=== PATIENT | male | born 1940 | race Caucasian/White ===

== ENCOUNTER 2023-08-03 15:30 | Inpatient (IN) | payer MEDICARE, OTHER ==
[~2023-08-03] VITALS: Ht 180.3 cm; Wt 81.8 kg
[~2023-08-03 15:30] MED LIST: ERGO400C PO; FERR-121 PO; FINA5TAB11 PO; FOLI0.4T6 PO; MECO10005 PO; TERA10CA4 PO
[2023-08-03 17:37] LABS: ALANINE AMINOTRANSFERASE 34 U/L (12-78); ALBUMIN 2.7 G/DL (3.4-5.0); ALKALINE PHOSPHATASE 40 IU/L (46-116); ANION GAP 6 (8-16); ASPARTATE AMINO TRANSFERASE 19 U/L (10-37); BILIRUBIN,TOTAL 0.3 MG/DL (0.1-1.0); BLOOD UREA NITROGEN 20 MG/DL (7-18); BUN/CREATININE RATIO 16.4 (10.0-20.0); CALCIUM 8.1 MG/DL (8.5-10.1); CHLORIDE 104 MMOL/L (99-107); CREATININE 1.22 MG/DL (0.60-1.10); GLUCOSE 115 MG/DL (70-104); POTASSIUM 4.3 MMOL/L (3.5-5.1); SODIUM 135 MMOL/L (135-145); TOTAL CARBON DIOXIDE 25.1 MMOL/L (24-32); TOTAL PROTEIN 5.3 G/DL (6.4-8.2); eCRCL 48 ML/MIN; eGFR 57 ML/MIN
[2023-08-03 17:43] LABS: HEMATOCRIT 18.5 % (42.0-52.0); HEMOGLOBIN 5.9 g/dl (14.0-17.9); RED BLOOD COUNT 2.01 X10'6 (4.70-6.10); WHITE BLOOD COUNT 7.2 X10'3 (4.5-11.0)
[2023-08-03 17:45] LABS: BASOPHILS % (AUTO) 1.2 % (0-1); EOSINOPHILS % (AUTO) 0.8 % (0-6); LYMPHOCYTES % (AUTO) 13.8 % (21-51); MEAN CORPUSCULAR HEMOGLOBIN 29.1 PG (27.0-31.0); MEAN CORPUSCULAR HGB CONC 31.7 g/dL (33.0-36.5); MEAN CORPUSCULAR VOLUME 91.8 FL (78-98); MEAN PLATELET VOLUME 8.3 FL (7.4-10.4); MONOCYTES % (AUTO) 8.9 % (2-12); NEUTROPHILS # (AUTO) 5.4 X10'3 (1.8-7.7); NEUTROPHILS % (AUTO) 75.3 % (42-75); PLATELET COUNT 233 X10'3 (140-440); RED CELL DISTRIBUTION WIDTH 15.8 % (11.5-14.5)
[2023-08-03 17:46] LABS: BASOPHILS # (AUTO) 0.1 X10'3 (0-0.2); EOSINOPHILS # (AUTO) 0.1 X10'3 (0-0.9); MONOCYTES # (AUTO) 0.6 X10'3 (0-0.9)
[2023-08-03] MEDS ORDERED: LidoCAINE 2% Topical Jelly 11mL syringe TOP ONE (18:25)
[2023-08-03 19:53] LABS: OCCULT BLOOD STOOL NEGATIVE (Neg)
[2023-08-03 20:08] LABS: BASOPHILS # (AUTO) 0.1 X10'3 (0-0.2); EOSINOPHILS # (AUTO) 0.1 X10'3 (0-0.9); LYMPHOCYTES % (AUTO) 14.1 % (21-51); MEAN CORPUSCULAR HEMOGLOBIN 28.7 PG (27.0-31.0); MEAN CORPUSCULAR HGB CONC 31.3 g/dL (33.0-36.5); MEAN CORPUSCULAR VOLUME 91.5 FL (78-98); MONOCYTES # (AUTO) 0.6 X10'3 (0-0.9); MONOCYTES % (AUTO) 8.6 % (2-12); NEUTROPHILS # (AUTO) 5.3 X10'3 (1.8-7.7); NEUTROPHILS % (AUTO) 75.3 % (42-75); PLATELET COUNT 240 X10'3 (140-440); RED BLOOD COUNT 1.99 X10'6 (4.70-6.10); RED CELL DISTRIBUTION WIDTH 15.8 % (11.5-14.5)
[2023-08-03 20:14] LABS: HEMATOCRIT 18.2 % (42.0-52.0); HEMOGLOBIN 5.7 g/dl (14.0-17.9)
[2023-08-03 20:19] LABS: APTT 24 SECONDS (22-32); INR 1.1 INR; PROTHROMBIN TIME 11.5 SECONDS (9.0-12.0)
[2023-08-03 20:52] LABS: CLARITY,URINE BLOODY (Clear); COLOR,URINE RED (Yellow); UA COLLECTION TYPE FOLEY CATH
[2023-08-03 21:11] LABS: BACTERIA,URINE 2+ /HPF (Neg); RBC,URINE TNTC /HPF (0-2); SQUAMOUS EPITHELIAL CELL,UR NONE SEEN /LPF (FEW)
[2023-08-03 21:22] VITALS: BP 123/46; PULSE 66; RESP 18; TEMP 98.1
[2023-08-03] MEDS ORDERED: potassium Cl 20 mEq SR tablet PO PRN ×2 (21:25)
[2023-08-03] MEDS ORDERED: magnesium 2GM in 50ml NS 50 ML IV PRN (21:25)
[2023-08-03] MEDS ORDERED: acetaminophen 325mg tablet PO PRN (21:25)
[2023-08-03] MEDS ORDERED: magnesium hydroxide 30ml (MOM) UD suspension PO PRN (21:25)
[2023-08-03] MEDS ORDERED: mag hydrox/Alum hydrox/simeth 30ml oral suspension PO PRN (21:25)
[2023-08-03] MEDS ORDERED: magnesium 4gm in 100ml NS 100 ML IV PRN (21:25)
[2023-08-03] MEDS ORDERED: magnesium Cl slow-release 64mg tablet PO PRN (21:25)
[2023-08-03] MEDS ORDERED: ondansetron/PF 4mg/2ml inj IV PRN (21:25)
[2023-08-03] MEDS ORDERED: potassium Cl 40MEQ/1/2NS 520ml 520 ML IV PRN (21:25)
[2023-08-03 21:38] VITALS: BP 126/51; PULSE 66; RESP 16; TEMP 98.5
[2023-08-03 22:40] VITALS: BP 126/60; PULSE 76; RESP 16; TEMP 98.3
[2023-08-03 22:52] VITALS: BP 119/53; PULSE 69; RESP 16; TEMP 98.3
[2023-08-03 23:07] VITALS: BP 128/55; PULSE 63; RESP 16; TEMP 98.3
[2023-08-03] MEDS: normal saline 1000ml 1,000 ML IV SCH (23:37)
[2023-08-04] VITALS: BP 121/57; PULSE 65; RESP 16; TEMP 98.2
[2023-08-04] MEDS: K and/or MAG REPLACEMENT MC SCH ×2 (07:23→20:00)
[2023-08-04] MEDS: docusate sod 100mg capsule PO SCH ×2 (08:00→20:00)
[2023-08-04 08:18] LABS: BASOPHILS # (AUTO) 0.1 X10'3 (0-0.2); BASOPHILS % (AUTO) 1.4 % (0-1); EOSINOPHILS # (AUTO) 0.1 X10'3 (0-0.9); EOSINOPHILS % (AUTO) 1.9 % (0-6); HEMATOCRIT 26.4 % (42.0-52.0); HEMOGLOBIN 8.5 g/dl (14.0-17.9); LYMPHOCYTES # (AUTO) 0.9 X10'3 (1.1-4.8); LYMPHOCYTES % (AUTO) 14.6 % (21-51); MEAN CORPUSCULAR HGB CONC 32.3 g/dL (33.0-36.5); MEAN CORPUSCULAR VOLUME 93.1 FL (78-98); MEAN PLATELET VOLUME 8.1 FL (7.4-10.4); MONOCYTES # (AUTO) 0.6 X10'3 (0-0.9); MONOCYTES % (AUTO) 10.1 % (2-12); NEUTROPHILS # (AUTO) 4.7 X10'3 (1.8-7.7); PLATELET COUNT 223 X10'3 (140-440); RED BLOOD COUNT 2.84 X10'6 (4.70-6.10); RED CELL DISTRIBUTION WIDTH 15.5 % (11.5-14.5); WHITE BLOOD COUNT 6.5 X10'3 (4.5-11.0)
[2023-08-04 08:19] LABS: HEMATOCRIT 26.1 % (42.0-52.0); HEMOGLOBIN 8.5 g/dl (14.0-17.9); MEAN CORPUSCULAR HEMOGLOBIN 29.6 PG (27.0-31.0); MEAN CORPUSCULAR HGB CONC 32.5 g/dL (33.0-36.5); MEAN CORPUSCULAR VOLUME 91.2 FL (78-98); PLATELET COUNT 203 X10'3 (140-440); RED BLOOD COUNT 2.86 X10'6 (4.70-6.10); RED CELL DISTRIBUTION WIDTH 15.7 % (11.5-14.5); WHITE BLOOD COUNT 6.3 X10'3 (4.5-11.0)
[2023-08-04 10:21] LABS: ALANINE AMINOTRANSFERASE 30 U/L (12-78); ALBUMIN 2.5 G/DL (3.4-5.0); ALKALINE PHOSPHATASE 33 IU/L (46-116); ANION GAP 7 (8-16); ASPARTATE AMINO TRANSFERASE 18 U/L (10-37); BILIRUBIN,TOTAL 0.6 MG/DL (0.1-1.0); BLOOD UREA NITROGEN 20 MG/DL (7-18); BUN/CREATININE RATIO 20.2 (10.0-20.0); CALCIUM 8.1 MG/DL (8.5-10.1); CHLORIDE 108 MMOL/L (99-107); CREATININE 0.99 MG/DL (0.60-1.10); GLUCOSE 108 MG/DL (70-104); MAGNESIUM 2.5 MG/DL (1.5-2.4); POTASSIUM 4.3 MMOL/L (3.5-5.1); SODIUM 138 MMOL/L (135-145); TOTAL CARBON DIOXIDE 23.5 MMOL/L (24-32); eCRCL 59 ML/MIN; eGFR 72 ML/MIN
[2023-08-04] MEDS: vancomycin/NS 1 GM ADD-VANTAGE 250 ML IV SCH (10:24)
[2023-08-04] MEDS: tamsulosin 0.4mg capsule PO SCH (12:19)
[2023-08-04 20:15] VITALS: BP 119/47; PULSE 66; RESP 17; TEMP 98; O2SAT 98
[2023-08-04 21:00] VITALS: RESP 17; O2SAT 98
[2023-08-05 02:00] VITALS: BP 114/42; PULSE 64; RESP 16; TEMP 97; O2SAT 99
[2023-08-05] MEDS: docusate sod 100mg capsule PO SCH ×2 (07:30→20:00)
[2023-08-05] MEDS: tamsulosin 0.4mg capsule PO SCH (07:31)
[2023-08-05 08:00] VITALS: RESP 14; O2SAT 97
[2023-08-05 08:45] LABS: BASOPHILS # (AUTO) 0.1 X10'3 (0-0.2); BASOPHILS % (AUTO) 0.8 % (0-1); EOSINOPHILS # (AUTO) 0.1 X10'3 (0-0.9); EOSINOPHILS % (AUTO) 1.6 % (0-6); HEMATOCRIT 26.8 % (42.0-52.0); HEMOGLOBIN 8.5 g/dl (14.0-17.9); LYMPHOCYTES # (AUTO) 0.8 X10'3 (1.1-4.8); LYMPHOCYTES % (AUTO) 10.5 % (21-51); MEAN CORPUSCULAR HEMOGLOBIN 29.1 PG (27.0-31.0); MEAN CORPUSCULAR HGB CONC 31.7 g/dL (33.0-36.5); MEAN CORPUSCULAR VOLUME 91.7 FL (78-98); MEAN PLATELET VOLUME 8.2 FL (7.4-10.4); MONOCYTES # (AUTO) 0.6 X10'3 (0-0.9); MONOCYTES % (AUTO) 7.4 % (2-12); NEUTROPHILS # (AUTO) 5.9 X10'3 (1.8-7.7); NEUTROPHILS % (AUTO) 79.7 % (42-75); PLATELET COUNT 253 X10'3 (140-440); RED BLOOD COUNT 2.92 X10'6 (4.70-6.10); RED CELL DISTRIBUTION WIDTH 15.7 % (11.5-14.5); WHITE BLOOD COUNT 7.5 X10'3 (4.5-11.0)
[2023-08-05 09:12] LABS: ALANINE AMINOTRANSFERASE 28 U/L (12-78); ALBUMIN 2.5 G/DL (3.4-5.0); ALKALINE PHOSPHATASE 36 IU/L (46-116); ANION GAP 5 (8-16); ASPARTATE AMINO TRANSFERASE 16 U/L (10-37); BILIRUBIN,TOTAL 0.6 MG/DL (0.1-1.0); BLOOD UREA NITROGEN 16 MG/DL (7-18); BUN/CREATININE RATIO 17.6 (10.0-20.0); CALCIUM 7.8 MG/DL (8.5-10.1); CHLORIDE 103 MMOL/L (99-107); CREATININE 0.91 MG/DL (0.60-1.10); GLUCOSE 103 MG/DL (70-104); MAGNESIUM 2.2 MG/DL (1.5-2.4); SODIUM 135 MMOL/L (135-145); TOTAL CARBON DIOXIDE 27.3 MMOL/L (24-32); eCRCL 64 ML/MIN; eGFR 79 ML/MIN
[2023-08-05 10:00] VITALS: BP 115/47; PULSE 68; RESP 14; TEMP 98.2; O2SAT 97
[2023-08-05] MEDS: vancomycin/NS 1 GM ADD-VANTAGE 250 ML IV SCH ×2 (11:16→23:12)
[2023-08-05 18:00] VITALS: BP 124/54; PULSE 72; RESP 16; TEMP 98.1; O2SAT 99
[2023-08-05] MEDS: K and/or MAG REPLACEMENT MC SCH (19:32)
[2023-08-05 20:00] VITALS: RESP 16; O2SAT 99
[2023-08-05] MEDS: normal saline 1000ml 1,000 ML IV SCH (21:25)
[2023-08-05 22:00] VITALS: BP 100/31; PULSE 63; RESP 16; TEMP 98.5; O2SAT 95
[2023-08-06 05:42] LABS: BASOPHILS # (AUTO) 0.1 X10'3 (0-0.2); BASOPHILS % (AUTO) 0.8 % (0-1); EOSINOPHILS # (AUTO) 0.2 X10'3 (0-0.9); EOSINOPHILS % (AUTO) 2.7 % (0-6); HEMATOCRIT 25.1 % (42.0-52.0); LYMPHOCYTES # (AUTO) 1.1 X10'3 (1.1-4.8); LYMPHOCYTES % (AUTO) 13.8 % (21-51); MEAN CORPUSCULAR HEMOGLOBIN 28.9 PG (27.0-31.0); MEAN CORPUSCULAR HGB CONC 31.9 g/dL (33.0-36.5); MEAN CORPUSCULAR VOLUME 90.5 FL (78-98); MEAN PLATELET VOLUME 7.8 FL (7.4-10.4); MONOCYTES # (AUTO) 0.7 X10'3 (0-0.9); MONOCYTES % (AUTO) 9.1 % (2-12); NEUTROPHILS # (AUTO) 5.6 X10'3 (1.8-7.7); NEUTROPHILS % (AUTO) 73.6 % (42-75); PLATELET COUNT 254 X10'3 (140-440); RED BLOOD COUNT 2.77 X10'6 (4.70-6.10); RED CELL DISTRIBUTION WIDTH 15.5 % (11.5-14.5); WHITE BLOOD COUNT 7.7 X10'3 (4.5-11.0)
[2023-08-06 06:00] VITALS: BP 108/97; PULSE 61; RESP 16; TEMP 97.4; O2SAT 97
[2023-08-06 06:27] LABS: ALANINE AMINOTRANSFERASE 22 U/L (12-78); ALBUMIN 2.4 G/DL (3.4-5.0); ALKALINE PHOSPHATASE 34 IU/L (46-116); ANION GAP 4 (8-16); ASPARTATE AMINO TRANSFERASE 17 U/L (10-37); BILIRUBIN,TOTAL 0.5 MG/DL (0.1-1.0); BLOOD UREA NITROGEN 15 MG/DL (7-18); CALCIUM 8.1 MG/DL (8.5-10.1); CHLORIDE 106 MMOL/L (99-107); CREATININE 0.94 MG/DL (0.60-1.10); GLUCOSE 107 MG/DL (70-104); MAGNESIUM 2.1 MG/DL (1.5-2.4); POTASSIUM 4.3 MMOL/L (3.5-5.1); SODIUM 138 MMOL/L (135-145); TOTAL CARBON DIOXIDE 27.8 MMOL/L (24-32); TOTAL PROTEIN 4.8 G/DL (6.4-8.2); eCRCL 62 ML/MIN; eGFR 76 ML/MIN
[2023-08-06 08:00] VITALS: RESP 14; O2SAT 93
[2023-08-06] MEDS: tamsulosin 0.4mg capsule PO SCH (08:30)
[2023-08-06] MEDS: docusate sod 100mg capsule PO SCH ×2 (08:30→19:59)
[2023-08-06 10:00] VITALS: BP 125/57; PULSE 61; RESP 14; TEMP 97.8; O2SAT 93
[2023-08-06] MEDS: vancomycin/NS 1 GM ADD-VANTAGE 250 ML IV SCH ×2 (11:17→23:53)
[2023-08-06 18:00] VITALS: BP 121/49; PULSE 97; RESP 16; TEMP 97.9; O2SAT 99
[2023-08-06] MEDS ORDERED: HYDROcodone/acetaminophen 5mg/325mg tablet PO PRN (19:25)
[2023-08-06] MEDS: K and/or MAG REPLACEMENT MC SCH (19:28)
[2023-08-06 20:11] VITALS: RESP 16; O2SAT 99
[2023-08-06 22:00] VITALS: BP 97/49; PULSE 64; RESP 16; TEMP 98.6; O2SAT 98
[2023-08-06] MEDS ORDERED: VANCOMYCIN LEVEL IV ONE (22:30)
[2023-08-07 06:52] LABS: BASOPHILS # (AUTO) 0.1 X10'3 (0-0.2); EOSINOPHILS # (AUTO) 0.1 X10'3 (0-0.9); EOSINOPHILS % (AUTO) 1.1 % (0-6); HEMATOCRIT 23.8 % (42.0-52.0); HEMOGLOBIN 7.5 g/dl (14.0-17.9); LYMPHOCYTES # (AUTO) 0.8 X10'3 (1.1-4.8); MEAN CORPUSCULAR HEMOGLOBIN 28.5 PG (27.0-31.0); MEAN CORPUSCULAR HGB CONC 31.4 g/dL (33.0-36.5); MEAN CORPUSCULAR VOLUME 90.8 FL (78-98); MEAN PLATELET VOLUME 8.3 FL (7.4-10.4); MONOCYTES # (AUTO) 0.8 X10'3 (0-0.9); MONOCYTES % (AUTO) 9.1 % (2-12); NEUTROPHILS # (AUTO) 7.2 X10'3 (1.8-7.7); NEUTROPHILS % (AUTO) 79.8 % (42-75); PLATELET COUNT 258 X10'3 (140-440); RED BLOOD COUNT 2.62 X10'6 (4.70-6.10); RED CELL DISTRIBUTION WIDTH 15.5 % (11.5-14.5)
[2023-08-07 07:15] LABS: ALANINE AMINOTRANSFERASE 23 U/L (12-78); ALBUMIN 2.3 G/DL (3.4-5.0); ALKALINE PHOSPHATASE 39 IU/L (46-116); ANION GAP 6 (8-16); ASPARTATE AMINO TRANSFERASE 15 U/L (10-37); BILIRUBIN,TOTAL 0.4 MG/DL (0.1-1.0); BLOOD UREA NITROGEN 17 MG/DL (7-18); BUN/CREATININE RATIO 22.1 (10.0-20.0); CALCIUM 8.1 MG/DL (8.5-10.1); CHLORIDE 106 MMOL/L (99-107); CREATININE 0.77 MG/DL (0.60-1.10); GLUCOSE 110 MG/DL (70-104); MAGNESIUM 2.1 MG/DL (1.5-2.4); POTASSIUM 4.4 MMOL/L (3.5-5.1); SODIUM 138 MMOL/L (135-145); TOTAL CARBON DIOXIDE 26.5 MMOL/L (24-32); TOTAL PROTEIN 4.7 G/DL (6.4-8.2); eCRCL 76 ML/MIN; eGFR > 90 ML/MIN
[2023-08-07] MEDS: K and/or MAG REPLACEMENT MC SCH ×2 (08:00→20:00)
[2023-08-07] MEDS: docusate sod 100mg capsule PO SCH ×2 (08:28→19:45)
[2023-08-07] MEDS: tamsulosin 0.4mg capsule PO SCH (08:28)
[2023-08-07 08:43] VITALS: RESP 16; O2SAT 97
[2023-08-07] MEDS ORDERED: VANCOMYCIN LEVEL IV ONE (09:30)
[2023-08-07 10:00] VITALS: BP_SYST 112; BP_SYST 118; BP_DIAS 49; BP_DIAS 56; PULSE 72; PULSE 75; RESP 16; RESP 18; TEMP 97.6; TEMP 97.7; O2SAT 98; O2SAT 99
[2023-08-07] MEDS: VANCOmycin 1250MG/NS 250ml Bag 250 ML IV SCH (11:08)
[2023-08-07 18:00] VITALS: BP 114/42; PULSE 80; RESP 16; TEMP 98.4; O2SAT 99
[2023-08-07 22:00] VITALS: BP 116/39; PULSE 87; RESP 18; TEMP 97.9; O2SAT 96
[2023-08-08] VITALS (8 sets, daily range): BP systolic 88–120; BP diastolic 35–55; PULSE 68–83; RESP 14–20; TEMP 97.5–98.3; O2SAT 94–98
[2023-08-08] MEDS: VANCOmycin 1250MG/NS 250ml Bag 250 ML IV SCH ×3 (01:28→23:25)
[2023-08-08] MEDS: normal saline 1000ml 1,000 ML IV SCH (01:29)
[2023-08-08 06:03] LABS: BASOPHILS # (AUTO) 0.1 X10'3 (0-0.2); EOSINOPHILS # (AUTO) 0.2 X10'3 (0-0.9); EOSINOPHILS % (AUTO) 2.4 % (0-6); HEMATOCRIT 22.3 % (42.0-52.0); LYMPHOCYTES # (AUTO) 0.9 X10'3 (1.1-4.8); LYMPHOCYTES % (AUTO) 13.2 % (21-51); MEAN CORPUSCULAR HEMOGLOBIN 28.4 PG (27.0-31.0); MEAN CORPUSCULAR HGB CONC 31.6 g/dL (33.0-36.5); MEAN CORPUSCULAR VOLUME 89.7 FL (78-98); MONOCYTES # (AUTO) 0.8 X10'3 (0-0.9); MONOCYTES % (AUTO) 10.8 % (2-12); NEUTROPHILS # (AUTO) 5.2 X10'3 (1.8-7.7); NEUTROPHILS % (AUTO) 72.6 % (42-75); PLATELET COUNT 272 X10'3 (140-440); RED BLOOD COUNT 2.48 X10'6 (4.70-6.10); RED CELL DISTRIBUTION WIDTH 15.7 % (11.5-14.5); WHITE BLOOD COUNT 7.1 X10'3 (4.5-11.0)
[2023-08-08 06:24] LABS: ALANINE AMINOTRANSFERASE 18 U/L (12-78); ALBUMIN 2.2 G/DL (3.4-5.0); ALBUMIN/GLOBULIN RATIO 0.9 (1.1-1.5); ALKALINE PHOSPHATASE 35 IU/L (46-116); ANION GAP 5 (8-16); ASPARTATE AMINO TRANSFERASE 17 U/L (10-37); BILIRUBIN,TOTAL 0.4 MG/DL (0.1-1.0); BLOOD UREA NITROGEN 18 MG/DL (7-18); BUN/CREATININE RATIO 20.7 (10.0-20.0); CALCIUM 8.1 MG/DL (8.5-10.1); CHLORIDE 106 MMOL/L (99-107); CREATININE 0.87 MG/DL (0.60-1.10); GLUCOSE 106 MG/DL (70-104); POTASSIUM 4.4 MMOL/L (3.5-5.1); SODIUM 138 MMOL/L (135-145); TOTAL CARBON DIOXIDE 27.4 MMOL/L (24-32); TOTAL PROTEIN 4.7 G/DL (6.4-8.2); eCRCL 67 ML/MIN; eGFR 84 ML/MIN
[2023-08-08] MEDS: K and/or MAG REPLACEMENT MC SCH ×2 (08:00→20:00)
[2023-08-08] MEDS: docusate sod 100mg capsule PO SCH ×2 (09:01→21:35)
[2023-08-08] MEDS: tamsulosin 0.4mg capsule PO SCH (09:01)
[2023-08-08 18:54] LABS: HEMATOCRIT 22.5 % (42.0-52.0); HEMOGLOBIN 7.2 g/dl (14.0-17.9); MEAN CORPUSCULAR HEMOGLOBIN 28.6 PG (27.0-31.0); MEAN CORPUSCULAR HGB CONC 31.9 g/dL (33.0-36.5); MEAN CORPUSCULAR VOLUME 89.7 FL (78-98); PLATELET COUNT 284 X10'3 (140-440); RED CELL DISTRIBUTION WIDTH 15.9 % (11.5-14.5); WHITE BLOOD COUNT 7.6 X10'3 (4.5-11.0)
[2023-08-08] MEDS ORDERED: VANCOMYCIN LEVEL IV ONE (22:30)
[2023-08-09] VITALS (23 sets, daily range): BP systolic 96–125; BP diastolic 38–67; PULSE 70–100; RESP 12–20; TEMP 97.6–98.8; O2SAT 94–100
[2023-08-09] MEDS: K and/or MAG REPLACEMENT MC SCH ×2 (08:00→20:00)
[2023-08-09] MEDS ORDERED: VANCOMYCIN 1,500MG in normal saline IV soln 300 ML IV SCH (11:00)
[2023-08-09] MEDS: tamsulosin 0.4mg capsule PO SCH (11:09)
[2023-08-09] MEDS: docusate sod 100mg capsule PO SCH ×2 (11:09→20:00)
[2023-08-09] MEDS ORDERED: sevoflurane 250ml liquid IH ONE (12:22)
[2023-08-09] MEDS ORDERED: fentaNYL/PF 50MCG/1 ML 2ML syringe ONE (12:29)
[2023-08-09] MEDS ORDERED: midazolam 1 mg/ML 2ml injection ONE (12:29)
[2023-08-09] MEDS ORDERED: propofol inj 20 ML IV ONE (12:29)
[2023-08-09] MEDS ORDERED: ringers solution, lacted 1,000 ML IV SCH (13:30)
[2023-08-09] MEDS ORDERED: proCHLORperazine 10 MG/2 ml inj IV PRN (13:30)
[2023-08-09] MEDS ORDERED: meperidine/PF 25mg/ml syringe IV PRN ×3 (13:30)
[2023-08-09] MEDS ORDERED: ondansetron/PF 4mg/2ml inj IV PRN (13:30)
[2023-08-09] MEDS ORDERED: morphine 2 MG/ML inj. syringe IV PRN (13:30)
[2023-08-09] MEDS ORDERED: morphine 4 MG/ML inj SYRINge IV PRN (13:30)
[2023-08-09] MEDS: normal saline 1000ml 1,000 ML IV SCH (19:12)
[2023-08-09 19:51] LABS: MEAN CORPUSCULAR HEMOGLOBIN 28.5 PG (27.0-31.0); MEAN CORPUSCULAR HGB CONC 32.2 g/dL (33.0-36.5); MEAN CORPUSCULAR VOLUME 88.4 FL (78-98); MEAN PLATELET VOLUME 7.8 FL (7.4-10.4); PLATELET COUNT 287 X10'3 (140-440); RED BLOOD COUNT 2.43 X10'6 (4.70-6.10); RED CELL DISTRIBUTION WIDTH 15.8 % (11.5-14.5); WHITE BLOOD COUNT 9.2 X10'3 (4.5-11.0)
[2023-08-09 19:56] LABS: HEMATOCRIT 21.5 % (42.0-52.0); HEMOGLOBIN 6.9 g/dl (14.0-17.9)
[2023-08-10] VITALS (12 sets, daily range): BP systolic 100–120; BP diastolic 39–79; PULSE 71–92; RESP 14–16; TEMP 97.4–98.9; O2SAT 95–99
[2023-08-10] MEDS: docusate sod 100mg capsule PO SCH ×2 (11:12→20:45)
[2023-08-10] MEDS: tamsulosin 0.4mg capsule PO SCH (11:12)
[2023-08-10 13:34] LABS: HEMATOCRIT 24.2 % (42.0-52.0); HEMOGLOBIN 7.8 g/dl (14.0-17.9); MEAN CORPUSCULAR HEMOGLOBIN 28.5 PG (27.0-31.0); MEAN CORPUSCULAR HGB CONC 32.1 g/dL (33.0-36.5); MEAN CORPUSCULAR VOLUME 88.8 FL (78-98); MEAN PLATELET VOLUME 7.8 FL (7.4-10.4); PLATELET COUNT 289 X10'3 (140-440); RED BLOOD COUNT 2.73 X10'6 (4.70-6.10); WHITE BLOOD COUNT 6.4 X10'3 (4.5-11.0)
[2023-08-10] MEDS ORDERED: tamsulosin capsule PO (15:08)
[2023-08-10] MEDS: K and/or MAG REPLACEMENT MC SCH ×2 (20:00→20:45)
[2023-08-10] MEDS ORDERED: VANCOMYCIN LEVEL IV ONE (22:30)
[2023-08-11 06:00] VITALS: BP 120/45; PULSE 78; RESP 16; TEMP 98; O2SAT 96
[2023-08-11 06:43] LABS: BASOPHILS # (AUTO) 0.1 X10'3 (0-0.2); EOSINOPHILS # (AUTO) 0.2 X10'3 (0-0.9); HEMOGLOBIN 7.6 g/dl (14.0-17.9); MEAN CORPUSCULAR HEMOGLOBIN 28.6 PG (27.0-31.0); MEAN PLATELET VOLUME 7.8 FL (7.4-10.4); WHITE BLOOD COUNT 6.3 X10'3 (4.5-11.0)
[2023-08-11 06:45] LABS: BASOPHILS % (AUTO) 1.6 % (0-1); EOSINOPHILS % (AUTO) 2.8 % (0-6); HEMATOCRIT 23.3 % (42.0-52.0); LYMPHOCYTES # (AUTO) 0.9 X10'3 (1.1-4.8); LYMPHOCYTES % (AUTO) 13.5 % (21-51); MEAN CORPUSCULAR HGB CONC 32.5 g/dL (33.0-36.5); MEAN CORPUSCULAR VOLUME 87.9 FL (78-98); MONOCYTES # (AUTO) 0.9 X10'3 (0-0.9); MONOCYTES % (AUTO) 13.9 % (2-12); NEUTROPHILS # (AUTO) 4.3 X10'3 (1.8-7.7); NEUTROPHILS % (AUTO) 68.2 % (42-75); PLATELET COUNT 296 X10'3 (140-440); RED BLOOD COUNT 2.65 X10'6 (4.70-6.10)
[2023-08-11 06:53] LABS: ALBUMIN 2.1 G/DL (3.4-5.0); ANION GAP 0 (8-16); BLOOD UREA NITROGEN 26 MG/DL (7-18); BUN/CREATININE RATIO 27.1 (10.0-20.0); CALCIUM 8.3 MG/DL (8.5-10.1); CHLORIDE 109 MMOL/L (99-107); CREATININE 0.96 MG/DL (0.60-1.10); GLUCOSE 110 MG/DL (70-104); POTASSIUM 4.4 MMOL/L (3.5-5.1); SODIUM 138 MMOL/L (135-145); eCRCL 61 ML/MIN; eGFR 75 ML/MIN
[2023-08-11] MEDS: tamsulosin 0.4mg capsule PO SCH (07:25)
[2023-08-11] MEDS: docusate sod 100mg capsule PO SCH (07:25)
[2023-08-11 08:00] VITALS: RESP 16; O2SAT 96
[2023-08-11] MEDS: K and/or MAG REPLACEMENT MC SCH (08:00)
== END 2023-08-11 13:45 | disposition home or self-care (01) | DRG 662 ==
LOC: ER 15:31 → ED HOLD 21:27 → ORTHO 4S 08-04 20:10
PROVIDERS: ADMIT Internal Medicine; ATTEND Internal Medicine
PROC: 30233N1 Transfusion of Nonautologous Red Blood Cells into Peripheral Vein, Percutaneous Approach (ICD-10-PCS; 2023-08-03)
PROC: 0T5B8ZZ Destruction of Bladder, Via Natural or Artificial Opening Endoscopic (ICD-10-PCS; 2023-08-09)
PROC: 0TCB8ZZ Extirpation of Matter from Bladder, Via Natural or Artificial Opening Endoscopic (ICD-10-PCS; 2023-08-09)
PROC: 3E1K78Z Irrigation of Genitourinary Tract using Irrigating Substance, Via Natural or Artificial Opening (ICD-10-PCS; 2023-08-09)
PROC: 0W3R8ZZ Control Bleeding in Genitourinary Tract, Via Natural or Artificial Opening Endoscopic (ICD-10-PCS; principal; 2023-08-09 12:22)
DX: N30.41 Irradiation cystitis with hematuria (principal); E43 Unspecified severe protein-calorie malnutrition; D62 Acute posthemorrhagic anemia; N32.9 Bladder disorder, unspecified; N41.1 Chronic prostatitis; N40.1 Benign prostatic hyperplasia with lower urinary tract symptoms; Z85.46 Personal history of malignant neoplasm of prostate; Z86.16 Personal history of COVID-19; Z88.0 Allergy status to penicillin; Z79.899 Other long term (current) drug therapy; Z92.3 Personal history of irradiation; Z68.25 Body mass index [BMI] 25.0-25.9, adult
CPT/HCPCS: 36415; 36430; 71045; 74176; 80048; 80053; 80202; 81001; 82272; 82948; 83735; 85025; 85027; 85610; 85730; 86885; 86900; 86901; 86920; 87081; 87088; 93005; 93970; 97161; 97530; 99285; A4346; A4355; A4618; A5200; A6258; G0378; J2250; J2704; J3010; J3370; J7030; J7040; P9016

== ENCOUNTER 2024-07-06 12:05 | Emergency (ER) | payer MEDICARE, OTHER ==
[~2024-07-06] VITALS: Ht 180.3 cm; Wt 79.0 kg
[~2024-07-06 12:05] MED LIST changes: -TERA10CA4 PO; +tamsulosin capsule PO
[2024-07-06 12:28] VITALS: TEMP 97.6
[2024-07-06 15:05] LABS: CLARITY,URINE BLOODY (Clear); COLOR,URINE RED (Yellow); UA COLLECTION TYPE NON-SPECIFIED
[2024-07-06 15:09] LABS: BACTERIA,URINE FEW /HPF (Neg); MUCUS STRANDS NONE SEEN /LPF (Neg); RBC,URINE TNTC /HPF (0-2); SQUAMOUS EPITHELIAL CELL,UR NONE SEEN /LPF (FEW); WBC,URINE 0-4 /HPF (0-4)
[2024-07-06 15:14] LABS: BASOPHILS % (AUTO) 0.4 % (0-1); EOSINOPHILS % (AUTO) 0.3 % (0-6); HEMATOCRIT 39.7 % (42.0-52.0); HEMOGLOBIN 13.6 g/dl (14.0-17.9); LYMPHOCYTES # (AUTO) 0.6 X10'3 (1.1-4.8); LYMPHOCYTES % (AUTO) 7.5 % (21-51); MEAN CORPUSCULAR HEMOGLOBIN 34.4 PG (27.0-31.0); MEAN CORPUSCULAR HGB CONC 34.3 g/dL (33.0-36.5); MEAN CORPUSCULAR VOLUME 100.4 FL (78-98); MEAN PLATELET VOLUME 8.3 FL (7.4-10.4); MONOCYTES # (AUTO) 0.5 X10'3 (0-0.9); MONOCYTES % (AUTO) 6.8 % (2-12); NEUTROPHILS # (AUTO) 6.3 X10'3 (1.8-7.7); PLATELET COUNT 194 X10'3 (140-440); RED BLOOD COUNT 3.95 X10'6 (4.70-6.10); RED CELL DISTRIBUTION WIDTH 13.2 % (11.5-14.5); WHITE BLOOD COUNT 7.4 X10'3 (4.5-11.0)
[2024-07-06 15:19] LABS: ALBUMIN 3.3 G/DL (3.4-5.0); ANION GAP 8 (8-16); BLOOD UREA NITROGEN 21 MG/DL (7-18); BUN/CREATININE RATIO 19.3 (10.0-20.0); CALCIUM 8.7 MG/DL (8.5-10.1); CHLORIDE 102 MMOL/L (99-107); CREATININE 1.09 MG/DL (0.60-1.10); GLUCOSE 127 MG/DL (70-104); POTASSIUM 4.4 MMOL/L (3.5-5.1); SODIUM 135 MMOL/L (135-145); TOTAL CARBON DIOXIDE 24.7 MMOL/L (24-32); eCRCL 53 ML/MIN; eGFR 64 ML/MIN
[2024-07-06 17:05] VITALS: BP 131/53; PULSE 60; RESP 16; O2SAT 100
== END 2024-07-06 19:08 | disposition home or self-care (01) ==
LOC: ER 12:06
DX: N40.1 Benign prostatic hyperplasia with lower urinary tract symptoms (principal); R33.8 Other retention of urine; R31.9 Hematuria, unspecified; Z88.0 Allergy status to penicillin; Z79.899 Other long term (current) drug therapy
CPT/HCPCS: 36415; 51700; 80048; 81001; 85025; 99284; A4314; A4340; A4346; A4355

== ENCOUNTER 2025-02-04 14:57 | Inpatient (IN) | payer MEDICARE, OTHER ==
[~2025-02-04] VITALS: Ht 177.8 cm; Wt 79.5 kg
--- NOTE | 2025-02-04 15:25 | Physician Documentation ---
History of Present Illness ~ Chief Complaint: Mechanical Fall Stated Complaint: FALL Time Seen by MD: 18:02 Primary Medical Doctor: Martha Hernandez [employer] HPI This is an 84-year-old male who presents with a ground level fall after a possible syncopal episode while bending over to pick something up off the ground. History as above. He reports that he has at the base of his bed fixing some clothes when he tripped over a plastic box to his right landing on his pillow. He denies head strike. He denies any abdominal pain or cough cold congestion symptoms. He is unaware of his fever. Denies dysuria. Only concern right now of my patient is he would like a drink of water. Tetanus within 5 Years?: Yes Medication Reconciliation Allergies: Coded Allergies: Penicillins (Verified Allergy, Unknown, 02/04/25) Uncoded Allergies: PENICILLIN (Adverse Reaction, Unknown, UNKNOWN, 07/26/23) WHEN TREATING THEIR RA, TOLD THEM TO AVOID IT. Scheduled Ergocalciferol (Vitamin D), 1 CAP PO DAILY, (Reported) Ferrous Sulfate (Iron), 1 TAB PO DAILY, (Reported) Finasteride (Finasteride), 1 TAB PO DAILY, (Reported) Folic Acid* (Folic Acid*), 1 TAB PO DAILY, (Reported) Mecobalamin (B12 Active), 1 TAB PO DAILY, (Reported) [tamsulosin capsule], 0.4 MG PO DAILY Past Medical History Past Medical History: *RENAL/*, BPH, *MUSCULOSKELETAL*, *CANCER* Past Social History: As in HPI Review of Systems ROS As stated above in the HPI, otherwise all systems are reviewed and negative. Physical Exam Vital Signs: Temperature: 102.5, Source: Oral, Heart Rate: 97, Respiratory Rate: 22, BP: 104/44, Pulse Oximetry: 97, Weight: 79.550 Physical Exam General: Patient is awake, alert, oriented x4 in no acute distress and Head: Normocephalic and atraumatic. Eyes: Conjunctival normal. EOMI. PERRL. ENT: Mucous membranes moist. Neck: Supple, trachea is midline. Chest: Clear to auscultation bilaterally without rales, rhonchi, or wheezes. There is no accessory muscle use or retractions. Tachypneic Cardiac: RRR without murmurs, gallops, or rubs. Abd: Soft, nondistended, nontender, with normoactive bowel sounds. No guarding, rebound, or rigidity. Noted umbilical hernia without tenderness to palpation in is soft Extremities: Normal strength. Normal range of motion. No deformities or edema. Progress Results/Orders Results/Orders Orders - ELDER CONNORS MD Hospitalist (02/04/25 19:15) Fill Out Med Reconciliation (02/04/25 19:15) Completed Orders - ELDER CONNORS MD Ceftriaxone 2gm/D5w 50ml Bag (Rocephin 2 (02/04/25 18:05) Normal Saline 1000ml (Sodium Chloride 10 (02/04/25 18:05) Normal Saline 1000ml (Sodium Chloride 10 (02/04/25 18:05) Acetaminophen 325mg Tablet (Tylenol Tabl (02/04/25 18:20) Medications Received in ER Medications (Trade) Dose Ordered Sig/Sal Route PRN Reason Start Time Stop Time Status Last Admin Dose Admin (Tylenol tablet) 650 mg ONCE ONCE PO 02/04/25 18:20 02/04/25 18:21 DC 02/04/25 19:00 650 MG Vital Signs 02/04/25 02/04/25 02/04/25 15:17 16:08 19:06 Temp 102.5 Pulse 97 84 Resp 22 20 15 B/P (MAP) 104/44 111/52 (71) Pulse Ox 97 96 Laboratory Tests Test 02/04/25 15:32 02/04/25 19:55 White Blood Count 20.2 H Red Blood Count 3.46 L Hemoglobin 11.2 L Hematocrit 32.9 L Mean Corpuscular Volume 94.8 Mean Corpuscular Hemoglobin 32.2 H Mean Corpuscular Hemoglobin Concent 34.0 Red Cell Distribution Width 14.3 Platelet Count 206 Mean Platelet Volume 8.1 Neutrophils (%) (Auto) 91.1 H Lymphocytes (%) (Auto) 1.4 L Monocytes (%) (Auto) 7.3 Eosinophils (%) (Auto) 0 Basophils (%) (Auto) 0.2 Neutrophils # (Auto) 18.4 H Lymphocytes # (Auto) 0.3 L Monocytes # (Auto) 1.5 H Eosinophils # (Auto) 0.0 Basophils # (Auto) 0.0 CBC Comment Sodium Level 130 L Potassium Level 4.3 Chloride Level 97 L Carbon Dioxide Level 24.2 Anion Gap 9 Blood Urea Nitrogen 39 H Creatinine 2.21 H Estimated GFR/1.73 m2 28 BUN/Creatinine Ratio 17.6 Glucose Level 142 H Lactic Acid Level 1.9 Calcium Level 8.7 Albumin 2.7 L Procalcitonin 10.86 H Chemistry Comments Urine Specimen Description Non-specified Urine Color Brown Urine Clarity Cloudy Urine pH 5.5 Urine Specific [place] 1.025 Urine Protein >=300 H Urine Glucose (UA) Negative Urine Ketones 15 H Urine Occult Blood Large H Urine Nitrite Positive H Urine Bilirubin Small Urine Urobilinogen 1.0 Urine Leukocyte Esterase Trace H Urine RBC 50-100 Urine WBC 5-10 H Urine Squamous Epithelial Cells Few Urine Bacteria Few Urine Mucus Few Urine Culture Indicated Indicated Volume Urine Centrifuged 10 ml Urine Comment Microbiology Date/Time Source Procedure Growth Status 02/04/25 20:33 Urine Nonspecified Urine Culture - Preliminary Culture received. Resulted 02/04/25 15:32 Blood Arm Left Blood Culture - Preliminary NEGATIVE (LESS THAN 24 HOURS) Resulted EKG/XRAY/CT/US/VASC/MRI Chest X-Ray : Additional Comments Exam: CHEST,SINGLE VIEW CHEST RADIOGRAPH Indication: SEPSIS Technique: Single frontal view of the chest was obtained COMPARISON: DI CHEST,SINGLE VIEW on DOS: 08/03/23, DI CHEST,SINGLE VIEW on DOS: 07/26/23 FINDINGS: Lines and Tubes: None Lungs: Clear Pleura: No effusion. No pneumothorax. Cardiomediastinal contours: Unremarkable Bones: Unremarkable IMPRESSION: 1. Minimal left basilar atelectasis. No consolidation Medical Decision Making Findings Patient presented to the emergency room with fever and fall. Patient denies head strike. Differentials include but are not limited to sepsis, urinary tract infection, intra-abdominal infection, pneumonia therefore emergent labs and imaging indicated. Patient was urinary tract infection and along with elevation of white blood cell count and fever he is septic. IV antibiotics has been initiated along with 30 milliliters/kilogram of IV fluids. Departure Admitted to Inpatient Unit: yes, to hospitalist Impression: Primary Impression: Fall Additional Impressions: Sepsis Urinary tract infection Acute kidney injury Condition: Guarded Referrals: NO PRIMARY CARE PROVIDER (PCP) Signature Scribe Signature: No scribe Attestation: The note accurately reflects work and decisions made by me.Elder Connors MD 02/04/25 21:06 BONNY FLORESP Feb 04, 2025 15:25 ELDER CONNORS MD Feb 04, 2025 18:16
[2025-02-04 15:56] LABS: MEAN PLATELET VOLUME 8.1 FL (7.4-10.4); RED CELL DISTRIBUTION WIDTH 14.3 % (11.5-14.5)
--- NOTE | 2025-02-04 16:07 | RADIOLOGY REPORT ---
CHEST RADIOGRAPH Indication: SEPSIS Technique: Single frontal view of the chest was obtained COMPARISON: DI CHEST,SINGLE VIEW on DOS: 08/03/23, DI CHEST,SINGLE VIEW on DOS: 07/26/23 FINDINGS: Lines and Tubes: None Lungs: Clear Pleura: No effusion. No pneumothorax. Cardiomediastinal contours: Unremarkable Bones: Unremarkable IMPRESSION: 1. Minimal left basilar atelectasis. No consolidation
[2025-02-04 16:08] LABS: CREATININE 2.21 MG/DL (0.60-1.10); TOTAL CARBON DIOXIDE 24.2 MMOL/L (24-32); eCRCL 26 ML/MIN; eGFR 28 ML/MIN
[2025-02-04] MEDS: normal saline 1000ML IV soln IVB ONE ×2 (18:12→19:02)
[2025-02-04] MEDS: CefTRIAXone 2gm/D5W 50ml BAG 50 ML IV ONE (18:12)
[2025-02-04 20:05] LABS: LEUKOCYTE ESTERASE ,URINE TRACE (Neg); NITRITES, URINE POSITIVE (Neg); OCCULT BLOOD,URINE LARGE (Neg)
[2025-02-04 20:16] LABS: UA COLLECTION TYPE NON-SPECIFIED
[2025-02-04 20:33] LABS: MUCUS STRANDS FEW /LPF (Neg); SQUAMOUS EPITHELIAL CELL,UR FEW /LPF (FEW)
--- NOTE | 2025-02-04 21:41 | RADIOLOGY REPORT ---
Procedure: CT CT HEAD [facility] Study Date and Requested Time: 02/04/2025 09:15 PM History: fall Comparison: None Dose: CTDI: 65.7 mGy DLP: 1206.21 mGycm Technique: Multiplanar images obtained through the brain without intravenous contrast. Findings: Lbaf-fo-xkolpxtp frontoparietal predominant brain atrophy. Mild chronic small vessel ischemic changes . Bilateral basal ganglia physiologic calcification. No hemorrhages, masses, mass effect, midline shift, herniation or cytotoxic edema following a large v ascular territory. No intra-axial or extra-axial fluid collections. No evidence of hydrocephalus. The basal cisterns are patent. The pituitary gland, sella and parasellar regions are unremarkable. The cerebellar tonsils are in nor mal position. The cerebellum is unremarkable. Right lens replacement. Otherwise, orbits and globes are unremarkable. The paranasal sinuses and mas toids are clear. There are no worrisome calvarial lesions. Impression: No evidence of acute intracranial abnormality.
--- NOTE | 2025-02-04 21:44 | RADIOLOGY REPORT ---
Exam: CT CT ABDOMEN PELVIS History: fall, hematuria Comparison Study: CT CT ABDOMEN PELVIS on DOS: 08/03/23 TECHNIQUE: Multidetector CT of the abdomen and pelvis was performed from lung bases to pubic symphysi s. Imaging was performed without IV contrast. Axial, coronal, and sagittal multiplanar reformats were obtained from the axial data set by the technologist. Findings: Small left pleural effusion with associated left lower lobe atelectasis. Coronary artery calcium. The liver is unremarkable. Few layering gallstones. Fatty atrophy of the pancreas with scattered punctate calcification. 2.1 cm cystic structure within t he pancreatic head. The adrenal glands are unremarkable. The right kidney is within normal limits. There is severe left h ydronephrosis with hyperattenuating products within the renal collecting system. There is trace stran ding - edema within the left perinephric fat. No radiopaque renal stones. The urinary bladder and pro state are normal in size. Their submucosal fatty infiltration within the stomach. Small hiatal hernia. Small bowel and appendix are unremarkable. Extensive sigmoid diverticulosis. 5 cm ventral fat containing abdominal hernia. The bones are severely demineralized. Mild degenerative changes within the lumbar spine. No fracture is identified. Impression: 1. Severe left hydronephrosis perinephric edema with blood products within the renal collecting syste m without evidence of radiopaque stones. Findings concerning for underlying renal malignancy such as transitional cell carcinoma. Differential includes non radiopaque stone, though less likely. Recommen d CT urogram and urine cytology for further assessment 2. Sequela of chronic pancreatitis. 3. 2.1 cm cystic lesion in the pancreatic head, recommend MRI CP / MRI of the abdomen with contrast f or further assessment 4. Sequelae of prior gastritis 5. Small left pleural effusion with associated left basilar atelectasis
[2025-02-04] MEDS ORDERED: mag hydrox/Alum hydrox/simeth 30ml oral suspension PO PRN (23:15)
[2025-02-04] MEDS ORDERED: potassium Cl 20 mEq SR tablet PO PRN ×2 (23:15)
[2025-02-04] MEDS ORDERED: HYDROcodone/acetaminophen 10/325mg tab PO PRN (23:15)
[2025-02-04] MEDS ORDERED: HYDROcodone/acetaminophen 5mg/325mg tablet PO PRN (23:15)
[2025-02-04] MEDS ORDERED: magnesium Cl slow-release 64mg tablet PO PRN (23:15)
[2025-02-04] MEDS ORDERED: ondansetron/PF 4mg/2ml inj IV PRN (23:15)
[2025-02-04] MEDS ORDERED: magnesium sulf-water 2g/50mL 50 ML IV PRN (23:15)
[2025-02-04] MEDS ORDERED: magnesium sulf-water 4G/100mL 100 ML IV PRN (23:15)
[2025-02-04] MEDS ORDERED: potassium Cl 40MEQ/1/2NS 520ml 520 ML IV PRN (23:15)
--- NOTE | 2025-02-04 23:27 | HISTORY AND PHYSICAL-Residence ---
History & Physical Providers to CC Resident Creating Document: JUANGISELLANIKITA ~ History of Present Illness Primary Medical Doctor: Martha Hernandez NP Reason for Admit\Complaint: Uro sepsis History of Present Illness 84-year-old male who is hard of hearing with history of prostate cancer status post radiation, newly diagnosed renal cancer, cystitis and prostatitis presented to the ED due to balance issues and chills. Lives in a long-term home and states he has been having balance issues for the past five days. Prior to this he was able to walk without any issues. Denies losing consciousness or having a fall or hitting his head. He states he has been having hematuria for the past two years and has been followed by Dr. Alves his urologist. Twenty years ago he was diagnosed with prostate cancer status post radiation. Started developing hematuria two years ago, he had cauterization done by Dr. Alves in August 2023 and August 2024. Denies significant chest pains, diaphoresis, fevers, nasal congestion, expectoration, palpitations, or weight loss/weight gain. Denies symptoms of UTI like burning, urgency or frequency. States he has been diagnosed with a kidney mass that was biopsied and was found to be cancerous. On Tuesday he has an appointment with his oncologist in [place], he has been referred to [facility] oncology. Denies drinking alcohol or smoking. Discussed advanced care directives and he wishes to be a full code. Allergies: Coded Allergies: Penicillins (Verified Allergy, Unknown, 02/04/25) Uncoded Allergies: PENICILLIN (Adverse Reaction, Unknown, UNKNOWN, 07/26/23) WHEN TREATING THEIR RA, TOLD THEM TO AVOID IT. Home Medications Home Medications Active [tamsulosin capsule] 0.4 MG Cap 0.4 Mg PO DAILY Reported Folic Acid* (Folic Acid) 0.4 Mg Tablet 1 Tab PO DAILY 30 Days B12 Active (Mecobalamin) 1,000 Mcg Tab.chew 1 Tab PO DAILY 30 Days Iron (Ferrous Sulfate) 325 Mg (65 Mg Iron) Tablet 1 Tab PO DAILY 30 Days Vitamin D (Ergocalciferol) 400 Unit Capsule 1 Cap PO DAILY 30 Days Finasteride 5 Mg Tablet 1 Tab PO DAILY 30 Days Past Medical History Past Medical History Renal cancer, recently diagnosed Prostate cancer status post radiation Past Surgical History Surgical History Comment Cauterization x2 for chronic hematuria Past Social History Past Social History: As in HPI ROS ROS Reviewed in full. All negative except for pertinent positive HPI. Exam Vitals: Vital Signs Date Time Temp Pulse Resp B/P (MAP) Pulse Ox O2 Delivery O2 Flow Rate FiO2 02/04/25 19:06 84 15 111/52 (71) 96 02/04/25 15:17 102.5 General: General: Hard of hearing, Awake and Alert, no acute distress. HEENT: Conjunctiva pink, Sclera clear, Mucus Membranes dry. Neck: Supple without masses and tenderness. Resp: Unlabored. Equal breath sounds bilaterally. Heart: Regular rhythm, normal S1 and S2, no rub, murmur or gallop. Abdomen: Soft and non tender no organomegaly. Umbilical hernia. Normal bowel sounds x4 quadrant normoactive. No guarding or rigidity. Extremities: Normal ROM, no swelling, nontender. No cyanosis,clubbing or edema. COLOR SHOP HELPER: No gross motor or sensory abnormalities. Skin: Warm and Dry. Diagnostic Data Last Recorded Lab Results: 02/04/25 1532 02/04/25 1532 Advance Care Planning Advanced Care plannin - 30 Minutes Additional Plan 84-year-old male who is hard of hearing with history of prostate cancer status post radiation, newly diagnosed renal cancer, cystitis and prostatitis presented to the ED due to balance issues and chills Sepsis present on admission, secondary to urinary tract infection GRETTA secondary to renal tubular stasis Left Pyelonephritis, hematuria Newly diagnosed renal cell cancer He has a temperature 102.5 Vitals stable WBCs 20.2, procalcitonin 10.8, lactic acid within normal limits Received 2.5 L fluid bolus in the ED and IV ceftriaxone CT abdomen pelvis: Severe left-sided hydronephrosis with perinephric edema with blood products within the renal collecting system without evidence of radiopaque stones. Concerning for underlying renal malignancy. Continue IV ceftriaxone 1 g daily and IV fluids Follow up with blood and urine cultures and sensitivity Consider urology consult in am Newly diagnosed renal cell cancer, was being followed by urologist Dr. Alves and was found to have a renal mass which was biopsied and was found to be cancerous. He has an appointment with Oncology in [place] on Tuesday02/08/2025 and is requesting if he can be discharged prior to that date so he does not miss his appointment. Of note: Per ED records, mentioned about the syncopal episode, patient is alert and oriented x4, denied syncope. He also states he did not have a fall or hit his head. CT head is negative for any acute intracranial changes. Continue telemetry monitoring look for any arrhythmias, also follow up with orthostatic vitals History of prostate cancer status post radiation Cystic lesion in the pancreatic head, recommended outpatient MRI with contrast for further evaluation Awaiting med rec Code Status: Full code DVT prophylaxis: Heparin Analgesia/sedation: [place] Line/tube: PIV GI prophylaxis: None Nutrition: Regular diet Prognosis: Guarded Disposition: Continue medical management. Gisella Martinez MD. IM Resident PGY-3 Date of Service: Feb 04, 2025 Billing Provider: MARY VERMA MD Common Visit Codes: [id number] INP/OBS CARE (HIGH) Assessment/Plan Assessment Evaluated the patient with the help of residents. Discussed the case with them. Reviewed notes by Dr. Gisella JONES. Agree with her assessments and plans. I also reviewed the patient's records including labs, radiology, notes from other providers. Agree with the current care plan. GISELLA MARTINEZ, RES Feb 04, 2025 23:27 MARY VERMA MD Feb 05, 2025 05:38
[2025-02-04] MEDS: normal saline 1000ml 1,000 ML IV SCH (23:39)
[2025-02-05] VITALS (7 sets, daily range): BP systolic 100–176; BP diastolic 43–76; PULSE 76–96; RESP 14–21; TEMP 98.7–99.8; O2SAT 95–97
[2025-02-05 06:06] LABS: MEAN PLATELET VOLUME 8.5 FL (7.4-10.4); RED CELL DISTRIBUTION WIDTH 14.9 % (11.5-14.5)
[2025-02-05 06:16] LABS: CREATININE 1.85 MG/DL (0.60-1.10); PHOSPHORUS 3.1 MG/DL (2.3-4.5); TOTAL CARBON DIOXIDE 22.6 MMOL/L (24-32); eCRCL 31 ML/MIN; eGFR 35 ML/MIN
[2025-02-05] MEDS: K and/or MAG REPLACEMENT MC SCH (07:04)
[2025-02-05] MEDS: cholecalciferol (vitamin D3) 400 unit (10mcg) tablet PO SCH (07:18)
[2025-02-05] MEDS: cyanocobalamin 500mcg tablet PO SCH (07:18)
[2025-02-05] MEDS: heparin, porcine 5000 units/ml vial SQ SCH (07:22)
--- NOTE | 2025-02-05 15:29 | PROGRESS NOTE ---
Daily Progress Note Providers to CC ~ Antibiotic Timeout Antibiotic Ordered?: Yes Subjective No acute events overnight. Patient examined at bedside. No new complaints, not in acute distress. Patient denies chest pain, sob, palpitations, abdominal pain, n/v/d. Fever resolved, labs notable for improving acute kidney injury and downtrending white count. Case consulted with hygiene coordinator Dr. Zaman. Objective Vital Signs Date Time Temp Pulse Resp B/P (MAP) Pulse Ox O2 Delivery O2 Flow Rate FiO2 02/05/25 10:00 99.2 87 14 115/47 (69) 96 Room Air Result Diagram: 02/05/25 0509 02/05/25 0509 Physical Exam General: Generalized weakness, A&Ox 3, NAD HEENT: Normocephalic, PERRLA Neck: Supple, trachea midline, no JVD Chest: Clear to auscultation bilaterally Cardiovascular: RRR, S1&S2 GI: Soft and nontender Extremities: No cyanosis/clubbing/or edema SUPERVISOR GROWER: CN II-XII intact, no focal deficits Musculoskeletal: No paraspinal muscle tenderness, no muscle spasm Skin: Warm and intact Problem\Assessment\Plan 84-year-old male who is hard of hearing with history of prostate cancer status post radiation, newly diagnosed renal cancer, cystitis and prostatitis presented to the ED due to balance issues and chills Sepsis 2/2 left pyelonephritis, UTI Postrenal GRETTA 2/2 hydronephrosis Recent dx of renal cell carcinoma, left- biopsy done by Dr. Alves prior to admission History of prostate cancer s/p radiation -02/05: CT reveals severe left hydronephrosis perinephric edema with blood products within the renal collecting system without evidence of radiopaque stones. Findings concerning for underlying renal malignancy such as transitional cell carcinoma. -case discussed with urologist Dr. Alves who agreed to follow up outpatient, awaiting response from on-call urologist Dr. Starkey. Case consulted with hygiene coordinator Dr. Zaman -patient has f/u appt with college is [facility] on 02/08/25 Syncope vs Mechanical fall -Per ED records, mentioned about the syncopal episode, patient is alert and oriented x4, denied syncope. He also states he did not have a fall or hit his head. CT head negative, orthostatic negative, tele sinus in 70s, follow US carotid and MRI head Cystic lesion in the pancreatic head: f/u outpatient MRI with contrast for further evaluation Code Status: Full code DVT prophylaxis: Heparin Date of Service: Feb 05, 2025 Billing Provider: JP HUTCHINSON Common Visit Codes: [id number] INP/OBS CARE(HIGH) JP HUTCHINSON Feb 05, 2025 15:29
--- NOTE | 2025-02-05 16:29 | CONSULTATION REPORT - RESIDENT ---
Consult Providers to CC Resident Creating Document: CHANDLER GUSTAFSON RES History of Present Illness Primary Medical Doctor: [facility] Reason for Admit\Complaint: Weakness History of Present Illness This is a 84-year-old male patient diagnosis of left renal cell carcinoma and with a history of prosthetic head cancer status post radiotherapy presents to the hospital with complaints of generalized weakness leading to increased dizziness and near falls. He has a complex past medical history in terms of his cancers, reports that after his radiotherapy, he developed prostatic varices requiring cauterization twice but over the last two years he has had ongoing hematuria. In the last four months, due to a prior history of pyelonephritis, Dr. Alves also performed a ureteral stent at [facility] to relieve the obstruction. The patient is found to having recurrent UTIs due to his gross hematuria and clotting of blood but he is usually managed by outpatient antibiotic therapy, in fact he is currently also on low-dose suppressive antibiotic therapy prescribed by the [facility]. With a recent discovery of the renal cell carcinoma, he has been followed up with [facility] to identify his fitness for partial nephrectomy at [facility]. He is wanting to be discharged by to make it to his appointment on Tuesday. Allergies: Coded Allergies: Penicillins (Verified Allergy, Unknown, 02/04/25) Uncoded Allergies: PENICILLIN (Adverse Reaction, Unknown, UNKNOWN, 07/26/23) WHEN TREATING THEIR RA, TOLD THEM TO AVOID IT. Home Medications Home Medications Active [tamsulosin capsule] 0.4 MG Cap 0.4 Mg PO DAILY Reported Folic Acid* (Folic Acid) 0.4 Mg Tablet 1 Tab PO DAILY 30 Days B12 Active (Mecobalamin) 1,000 Mcg Tab.chew 1 Tab PO DAILY 30 Days Iron (Ferrous Sulfate) 325 Mg (65 Mg Iron) Tablet 1 Tab PO DAILY 30 Days Vitamin D (Ergocalciferol) 400 Unit Capsule 1 Cap PO DAILY 30 Days Finasteride 5 Mg Tablet 1 Tab PO DAILY 30 Days Past Medical History Past Medical History Prostate cancer status post radiotherapy Left Renal cell carcinoma Past Surgical History Surgical History Comment Cauterization of prostatic and bladder varices Status post ureteral stent placement (unknown side) Family History Family History: Patient reports no known family medical history. Past Social History Social History Comment No alcohol, smoking or illicit drug abuse Lives [facility]. ROS ROS As stated above in the HPI, otherwise all systems are reviewed and negative. Exam Vitals: Vital Signs Date Time Temp Pulse Resp B/P (MAP) Pulse Ox O2 Delivery O2 Flow Rate FiO2 02/05/25 10:00 99.2 87 14 115/47 (69) 96 Room Air General: General: Awake and Alert, no acute distress. HEENT: Conjunctiva pink, Sclera clear, Mucus Membranes moist. Resp: Unlabored. Lungs clear to auscultation bilaterally. Heart: Regular Rate and rhythm, normal S1 and S2 without murmur, rub or gallop. Abdomen: Soft, distended, nontender. Bowel sounds present Extremities: 1+ bilateral pitting edema Skin: Warm and Dry. Diagnostic Data Last Recorded Lab Results: 02/05/25 0509 02/05/25 0509 Additional Plan 1. Acute kidney injury: Secondary to postobstructive renal injury Obstruction likely secondary to obstructing clot/enlarged varices Recommend Urology consult for cystoscopy Continue IV fluid resuscitation Renal Function is improving, we will repeat another BMP to watch for improvement with the IV fluids No significant electrolyte abnormalities otherwise Strict I&O monitoring 2. Left renal pyelonephritis and hydronephrosis: Stasis induced UTI Generalized weakness secondary to the above Continue IV Rocephin Recommend Urology consult for cystoscopy and bladder irrigation; and possible ureteral stent placement to relieve the obstruction Continue medications of tamsulosin and finasteride. Blood pressure is well- controlled, can increase tamsulosin to b.i.d. dosing Lines: PIV Code status: Full code Chandler Gustafson PGY3, Internal medicine resident Date of Service: Feb 05, 2025 Billing Provider: VICENTE GO III, DEEPANJALI, RES Feb 05, 2025 16:29
[2025-02-05] MEDS ORDERED: CefTRIAXone/D5W-Rocephin 1gm 50 ML IV SCH (18:00)
[2025-02-05] MEDS: CefTRIAXone/D5W-Rocephin 1gm 50 ML IV SCH (18:03)
--- NOTE | 2025-02-05 18:37 | VASCULAR REPORT ---
Indication: Syncope Technique: Real-time ultrasound images of the neck vessels with dao-scale, color and wave Doppler we re obtained. Comparison: None Findings: There is mild bilateral atherosclerotic plaque. The following peak systolic velocities were recorded in cm/sec: Right internal carotid: 87 Right common carotid: 109 Right external carotid: 104 Right internal/common carotid ratio: 1 Left internal carotid: 102 Left common carotid: 107 Left external carotid: 131 Left internal/common carotid ratio: 1.1 Right vertebral artery: Patent with normal antegrade direction of flow. Left vertebral artery: Patent with normal antegrade direction of flow. Impression: No hemodynamically significant stenosis by velocity criteria. Mild bilateral atherosclerotic plaque.
[2025-02-05 18:42] LABS: CREATININE 1.87 MG/DL (0.60-1.10); TOTAL CARBON DIOXIDE 23.0 MMOL/L (24-32); eCRCL 30 ML/MIN; eGFR 34 ML/MIN
[2025-02-06 05:56] LABS: MEAN PLATELET VOLUME 8.8 FL (7.4-10.4); RED CELL DISTRIBUTION WIDTH 14.2 % (11.5-14.5)
[2025-02-06 06:00] VITALS: BP 127/74; PULSE 82; RESP 19; TEMP 98.3; O2SAT 95
[2025-02-06 06:14] LABS: CREATININE 2.01 MG/DL (0.60-1.10); PHOSPHORUS 2.4 MG/DL (2.3-4.5); TOTAL CARBON DIOXIDE 22.2 MMOL/L (24-32); eCRCL 28 ML/MIN; eGFR 32 ML/MIN
[2025-02-06 08:00] VITALS: RESP 16; O2SAT 96
[2025-02-06 08:41] LABS: CHOL/HDL RATIO 3.6 (0.00-4.99); LDL CHOLESTEROL 58 MG/DL (50-100)
[2025-02-06 10:00] VITALS: BP 105/66; PULSE 79; RESP 22; TEMP 96.7; O2SAT 95
--- NOTE | 2025-02-06 10:20 | RADIOLOGY REPORT ---
CLINICAL INDICATION: Rule out CVA. History of syncope and fall injury. COMPARISON: CT CT HEAD on DOS: 02/04/25 TECHNIQUE: Multisequence multiplanar MRI images of the brain were obtained without contrast. FINDINGS: No acute infarct or hemorrhage. No mass or midline shift. Atrophic changes with dilation o f the ventricles and widening of the sulci. Basal cisterns are patent. Cerebellum, brainstem, and mid line structures are within normal limits. Minimal mucosal thickening of the paranasal sinuses. Orbits are grossly unremarkable. IMPRESSION: No evidence of acute intracranial abnormality.
--- NOTE | 2025-02-06 10:34 | PROGRESS NOTE- Residence ---
Progress Note - Resident Providers to CC Resident Creating Document: CHANDLER GUSTAFSON, NIKITA ~ Central Line/PICC still needed: No Saldivar-Non Protocol Saldivar Indications Met/Not Met: F/C Indications Not Met Antibiotic Timeout Antibiotic Ordered?: Yes Subjective Patient is resting comfortably at bedside, no acute overnight events are no acute medical complaints at this time. Objective Vital Signs Date Time Temp Pulse Resp B/P (MAP) Pulse Ox O2 Delivery O2 Flow Rate FiO2 02/06/25 06:00 78 02/05/25 22:00 99.6 16 122/56 (78) 95 Room Air Result Diagram: 02/06/25 0511 02/06/25 0511 General: Awake and Alert, no acute distress. HEENT: Conjunctiva pink, Sclera clear, Mucus Membranes moist. Resp: Unlabored. Lungs clear to auscultation bilaterally. Heart: Regular Rate and rhythm, normal S1 and S2 without murmur, rub or gallop. Abdomen: Soft, distended, nontender. Bowel sounds present Extremities: 1+ bilateral pitting edema Skin: Warm and Dry. 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 The active hematuria leads to blood clots causing him to have recurrent UTIs and urinary obstructions. He presented with similar complaints at this time with unilateral pyelonephritis without a hydroureter due to complex blood products within the left renal system. He also has a left renal cell carcinoma that is currently being evaluated for nephrectomy. Plan Plan 1. Acute kidney injury: Secondary to postobstructive renal injury Obstruction likely secondary to obstructing clot/enlarged varices Discussed with primary care team for consulting with Urology; urology to evaluate the patient tomorrow Continue IV fluid resuscitation No significant electrolyte abnormalities otherwise Strict I&O monitoring 2. Left renal pyelonephritis and hydronephrosis: Stasis induced UTI Generalized weakness secondary to the above Continue IV Rocephin Recommend Urology consult for cystoscopy and bladder irrigation; and possible ureteral stent placement to relieve the obstruction Continue medications of tamsulosin and finasteride. Blood pressure is well- controlled, can increase tamsulosin to b.i.d. dosing Lines: PIV Code status: Full code Chandler Gustafson PGY3, Internal medicine resident Date of Service: Feb 06, 2025 Billing Provider: VICENTE GO III, DEEPANJALI, RES Feb 06, 2025 10:34
--- NOTE | 2025-02-06 11:16 | PROGRESS NOTE ---
Daily Progress Note Providers to CC ~ Antibiotic Timeout Antibiotic Ordered?: Yes Subjective No acute events overnight. Patient examined at bedside. No new complaints, not in acute distress. Patient denies chest pain, sob, palpitations, abdominal pain, n/v/d. Febrile, Cr uptrended again, procal remains elevated. Patient scheduled for stent placement tomorrow by Dr. Alves. Objective Vital Signs Date Time Temp Pulse Resp B/P (MAP) Pulse Ox O2 Delivery O2 Flow Rate FiO2 02/06/25 06:00 78 02/05/25 22:00 99.6 16 122/56 (78) 95 Room Air Result Diagram: 02/06/25 0511 02/06/25 0511 Physical Exam General: Generalized weakness, A&Ox 3, NAD HEENT: Normocephalic, PERRLA Neck: Supple, trachea midline, no JVD Chest: Clear to auscultation bilaterally Cardiovascular: RRR, S1&S2 GI: Soft and nontender Extremities: No cyanosis/clubbing/or edema ELECTRICIAN SUBSTATION SUPERVISOR: CN II-XII intact, no focal deficits Musculoskeletal: No paraspinal muscle tenderness, no muscle spasm Skin: Warm and intact Problem\Assessment\Plan 84-year-old male who is hard of hearing with history of prostate cancer status post radiation, newly diagnosed renal cancer, cystitis and prostatitis presented to the ED due to balance issues and chills Assessment & Plan Sepsis 2/2 left pyelonephritis, UTI Postrenal GRETTA 2/2 hydronephrosis/tubular stasis- POA Recent dx of renal cell carcinoma, left- biopsy done by Dr. Alves prior to admission History of prostate cancer s/p radiation -02/05: CT reveals severe left hydronephrosis perinephric edema with blood products within the renal collecting system without evidence of radiopaque stones. Findings concerning for underlying renal malignancy such as transitional cell carcinoma. -case discussed with urologist Dr. Alves. Case consulted with breakfast and room attendant Dr. Zaman. -patient has f/u appt with [facility] is [facility] on 02/08/25 -02/06: OR for stent placement tomorrow by Dr. Alves Orthostatic hypotension Syncope 2/2 Autonomic dysfunction- POA CVA- ruled out -Per ED records, mentioned about the syncopal episode, patient is alert and oriented x4, denied syncope. He also states he did not have a fall or hit his head. CT head negative, orthostatic positive, tele sinus in 70s, carotid US and MRI negative Cystic lesion in the pancreatic head: f/u outpatient MRI with contrast for further evaluation Code Status: Full code DVT prophylaxis: Heparin Date of Service: Feb 06, 2025 Billing Provider: JP HUTCHINSON Common Visit Codes: [id number] INP/OBS CARE(HIGH) JP HUTCHINSON Feb 06, 2025 11:16
--- NOTE | 2025-02-06 16:03 | CONSULTATION REPORT ---
Consult Providers to CC ~ History of Present Illness Reason for Admit\Complaint: Fall History of Present Illness Patient is known to me for left upper tract urothelial cancer. He is awaiting consultation at a higher volume center. He came in with concerns for infection. Was found to have an elevated white count, and labs concerning for infection. Urine culture was mixed ricardo, blood cultures negative. CT scan shows left swollen kidney with the ureter being normal. His stent was removed at the end of November after being placed for ureteroscopy and diagnosis of an upper tract mass which was confirmed to be upper tract urothelial cancer. Allergies: Coded Allergies: Penicillins (Verified Allergy, Unknown, 02/04/25) Uncoded Allergies: PENICILLIN (Adverse Reaction, Unknown, UNKNOWN, 07/26/23) WHEN TREATING THEIR RA, TOLD THEM TO AVOID IT. Home Medications Home Medications Active [tamsulosin capsule] 0.4 MG Cap 0.4 Mg PO DAILY Reported Folic Acid* (Folic Acid) 0.4 Mg Tablet 1 Tab PO DAILY 30 Days B12 Active (Mecobalamin) 1,000 Mcg Tab.chew 1 Tab PO DAILY 30 Days Iron (Ferrous Sulfate) 325 Mg (65 Mg Iron) Tablet 1 Tab PO DAILY 30 Days Vitamin D (Ergocalciferol) 400 Unit Capsule 1 Cap PO DAILY 30 Days Finasteride 5 Mg Tablet 1 Tab PO DAILY 30 Days Family History Family History: Patient reports no known family medical history. ROS ROS A pertinent 10 point review of systems was performed and was normal except as otherwise noted. Please also see HPI for added review of systems. Exam Vitals: Vital Signs Date Time Temp Pulse Resp B/P (MAP) Pulse Ox O2 Delivery O2 Flow Rate FiO2 02/06/25 08:00 16 96 Room Air 02/06/25 06:00 78 02/05/25 22:00 99.6 122/56 (78) General: General: Awake and Alert, no acute distress. HEENT: HEENT: Conjunctiva pink, Sclera clear, Mucus Membranes moist. Neck: Neck: Supple without masses and tenderness. Chest: Resp: Unlabored. Cardiovascular: Heart: Regular Rate and rhythm Abdomen: Abdomen: Soft and non tender no organomegaly Extremities: Extremities: No cyanosis,clubbing or edema. Skin: Skin: Warm and Dry. Diagnostic Data Last Recorded Lab Results: 02/06/25 0511 02/06/25 0511 Diagnostic Data: 02/04/25 CT Abdomen Pelvis (my read): left kidney with hydronephrosis at the level of the kidney,no ureteral swelling. Upper tract mass is a urothelial cancer. Problems: (1) Urothelial cancer Status: Chronic Assessment & Plan: Patient has left sided urothelial cancer. His urine is not clearly infected, and he has negative blood cultures. I am still concerned about potential infection. I would recommend stent placement for the risk of infection. I discussed this in detail with the patient. I discussed that there is a possibility it would not be much help decompressing the area above the mass. I discussed risks of the procedure including infection, bleeding, damage to surrounding tissues, and need for subsequent procedures. I discussed alternatives including nephrostomy tubes or observation. I discussed benefits including allowing the kidney to be decompressed especially if there is infection trapped behind the mass. After discussion the patient consented to proceed with the surgery. - OR tomorrow morning for cystoscopy, left retrograde pyelogram, left ureteral stent placement FORD CAREDNAS MD Feb 06, 2025 16:03
[2025-02-06 18:30] VITALS: BP 132/60; PULSE 118; RESP 18; TEMP 99; O2SAT 96
[2025-02-06 20:00] VITALS: BP_SYST 130; BP_SYST 131; BP_DIAS 57; BP_DIAS 59; BP_DIAS 61; PULSE 70; PULSE 76; PULSE 95
[2025-02-06 22:00] VITALS: BP 130/61; PULSE 70; RESP 14; TEMP 98.1; O2SAT 94
[2025-02-07] VITALS (22 sets, daily range): BP systolic 109–168; BP diastolic 46–79; PULSE 57–94; RESP 14–21; TEMP 97.5–98.9; O2SAT 93–100
[2025-02-07 05:05] LABS: MEAN PLATELET VOLUME 8.5 FL (7.4-10.4); RED CELL DISTRIBUTION WIDTH 14.3 % (11.5-14.5)
[2025-02-07 05:31] LABS: CREATININE 1.45 MG/DL (0.60-1.10); PHOSPHORUS 2.3 MG/DL (2.3-4.5); TOTAL CARBON DIOXIDE 20.4 MMOL/L (24-32); eCRCL 39 ML/MIN; eGFR 46 ML/MIN
[2025-02-07] MEDS ORDERED: iohexol 300 MG/1 ML 50ml polymer ONE (06:49)
[2025-02-07] MEDS ORDERED: propofol inj 20 ML IV ONE (07:27)
[2025-02-07] MEDS ORDERED: fentaNYL/PF 50MCG/1 ML 2ML syringe ONE (07:29)
[2025-02-07] MEDS ORDERED: HYDROmorphone/PF 0.2 MG/ML SYRINGE IV PRN ×2 (08:10)
[2025-02-07] MEDS ORDERED: ringers solution, lacted 1,000 ML IV SCH (08:10)
[2025-02-07] MEDS ORDERED: morphine 4 MG/ML inj SYRINge IV PRN (08:10)
[2025-02-07] MEDS ORDERED: ondansetron/PF 4mg/2ml inj IV PRN (08:10)
[2025-02-07] MEDS: CefTRIAXone 2gm/D5W 50ml BAG 50 ML IV SCH (09:36)
--- NOTE | 2025-02-07 10:08 | PROGRESS NOTE ---
Daily Progress Note Providers to CC ~ Antibiotic Timeout Antibiotic Ordered?: Yes If Yes, Indications: Pyelonephritis Subjective No acute events overnight. Patient examined at bedside. No new complaints, not in acute distress. Patient denies chest pain, sob, palpitations, abdominal pain, n/v/d. OR for stent placement today by Dr. Alves. Vss, afebrile, labs unremarkable. Objective Vital Signs Date Time Temp Pulse Resp B/P (MAP) Pulse Ox O2 Delivery O2 Flow Rate FiO2 02/07/25 09:00 66 18 129/66 (87) 96 Room Air 02/07/25 08:10 6.0 02/07/25 08:02 99.5 Result Diagram: 02/07/2543902/07/25439 Physical Exam General: A&Ox 3, NAD HEENT: Normocephalic, PERRLA Neck: Supple, trachea midline, no JVD Chest: Clear to auscultation bilaterally Cardiovascular: RRR, S1&S2 GI: Soft and nontender Extremities: No cyanosis/clubbing/or edema AUTOMATION TESTER: CN II-XII intact, no focal deficits Musculoskeletal: No paraspinal muscle tenderness, no muscle spasm Skin: Warm and intact Problem\Assessment\Plan 84-year-old male who is hard of hearing with history of prostate cancer status post radiation, newly diagnosed renal cancer, cystitis and prostatitis presented to the ED due to balance issues and chills Assessment & Plan Sepsis 2/2 left pyelonephritis, UTI Postrenal GRETTA 2/2 hydronephrosis/tubular stasis- POA Recent dx of renal cell carcinoma, left- biopsy done by Dr. Alves prior to admission History of prostate cancer s/p radiation -02/05: CT reveals severe left hydronephrosis perinephric edema with blood products within the renal collecting system without evidence of radiopaque stones. Findings concerning for underlying renal malignancy such as transitional cell carcinoma. -case discussed with urologist Dr. Alves. Case consulted with production supervisor Dr. Zaman. -patient has f/u appt with [facility] is [facility] on 02/08/25 -02/06: OR for stent placement tomorrow by Dr. Alves -02/07: stent placed today Orthostatic hypotension Syncope 2/2 Autonomic dysfunction- POA CVA- ruled out -Per ED records, mentioned about the syncopal episode, patient is alert and oriented x4, denied syncope. He also states he did not have a fall or hit his head. CT head negative, orthostatic positive, tele sinus in 70s, carotid US and MRI negative Cystic lesion in the pancreatic head: f/u outpatient MRI with contrast for further evaluation Code Status: Full code DVT prophylaxis: Heparin Date of Service: Feb 07, 2025 Billing Provider: JP HUTCHINSON Common Visit Codes: [id number] INP/OBS CARE(HIGH) JP HUTCHINSON Feb 07, 2025 10:08
[2025-02-07] MEDS: cholecalciferol (vitamin D3) 400 unit (10mcg) tablet PO SCH (11:12)
--- NOTE | 2025-02-07 11:35 | PROGRESS NOTE- Residence ---
Progress Note - Resident Providers to CC Resident Creating Document: CHANDLER GUSTAFSON, RES ~ Central Line/PICC still needed: No Saldivar-Non Protocol Saldivar Indications Met/Not Met: F/C Indications Not Met Antibiotic Timeout Antibiotic Ordered?: Yes Subjective Patient in surgery through the morning during the time of examination. As per the nurses, he had an acute overnight events and stable prior to surgery. 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 The active hematuria leads to blood clots causing him to have recurrent UTIs and urinary obstructions. He presented with similar complaints at this time with unilateral pyelonephritis without a hydroureter due to complex blood products within the left renal system. He also has a left renal cell carcinoma that is currently being evaluated for nephrectomy. He has been evaluated by Urology in the hospital for a stent placement. Plan Plan 1. Acute kidney injury: Secondary to postobstructive renal injury Obstruction likely secondary to obstructing clot/enlarged varices Downtrending creatinine, no abnormal electrolytes except for mild hyponatremia Creatinine will likely improve after stent placement and removal of blood products Minimal urine output, but patient using an urinal. Strict I&O monitoring 2. Left renal pyelonephritis and hydronephrosis: Stasis induced UTI Secondary to radiation cystitis induced hematuria- clotted blood products within the renal system Generalized weakness from UTI. Continue IV Rocephin Stent placement by Urology today on 02/07/2025 Continue medications of tamsulosin and finasteride. Blood pressure is well- controlled, can increase tamsulosin to b.i.d. dosing 3. Renal cell carcinoma: Pancreatic lesion of 2.1 cm Kindly being evaluated for nephrectomy and neoadjuvant chemotherapy/radiotherapy Outpatient follow up for oncology Lines: PIV Code status: Full code Chandler Gustafson PGY3, Internal medicine resident Date of Service: Feb 07, 2025 Billing Provider: VICENTE GO III, DEEPANJALI, RES Feb 07, 2025 11:35
--- NOTE | 2025-02-07 12:12 | OPERATIVE REPORT ---
Operative Report Providers to ~ Date of Procedure: Feb 07, 2025 Pre-Operative Diagnosis: Left upper tract urothelial cancer Post-Operative Diagnosis SAME as PRE-Op Procedure Performed Cystoscopy, left retrograde pyelogram, left ureteral stent placement Surgeon: MD Joselyn [facility] Representative None Type of Anesthesia: General Findings: Left renal pelvis filling defect. Complications None Prosthetics\Implants used: Left 6 x 26 double J ureteral stent Estimated Blood Loss: None Specimen Removed: None Description of Procedure: patient was brought to the operating room given a general anesthetic is placed in the dorsal Lithotomy position. Patient was prepped and draped in the normal sterile fashion. A timeout was performed. A 22 Tristanian cystoscope was inserted via the urethra. There was old blood in the urinary bladder. The left ureteral orifice was identified and intubated with a 5 Tristanian open-ended catheter at which point 4 retrograde pyelogram was performed. This showed normal shape and taper of the left ureter up until the renal pelvis there was a filling defect consistent with the cancer which is present. To be sure that no infection to be trapped in the hydronephrotic area I did place a 6 Tristanian by 26 centimeter double-J ureteral stent into the left ureter the wire was removed there was good coils in the proximal portion of the stent on spot fluoroscopy and good coils in the distal portion of the stent on direct visualization. the bladder was entirely drained of urine and cystoscope was removed via urethra is flexing to the procedure. No further urology interventions this hospital stay are planned. FORD CARDENAS MD Feb 07, 2025 12:12
[2025-02-08 06:44] VITALS: BP 147/62; PULSE 77; RESP 16; TEMP 98.4; O2SAT 94
[2025-02-08] MEDS: levoFLOXACIN-Levaquin 750MG/D5 150 ML IV SCH (07:55)
[2025-02-08 08:15] LABS: MEAN PLATELET VOLUME 8.4 FL (7.4-10.4); RED CELL DISTRIBUTION WIDTH 14.6 % (11.5-14.5)
[2025-02-08 08:29] LABS: CREATININE 1.41 MG/DL (0.60-1.10); PHOSPHORUS 2.0 MG/DL (2.3-4.5); TOTAL CARBON DIOXIDE 21.3 MMOL/L (24-32); eCRCL 39 ML/MIN; eGFR 48 ML/MIN
[2025-02-08 08:30] VITALS: BP_SYST 114; BP_SYST 124; BP_SYST 128; BP_DIAS 50; BP_DIAS 62; BP_DIAS 63; PULSE 68; PULSE 77; PULSE 86
--- NOTE | 2025-02-08 08:41 | PROGRESS NOTE- Residence ---
Progress Note - Resident Providers to CC Resident Creating Document: CHANDLER GUSTAFSON, NIKITA ~ Central Line/PICC still needed: No Saldivar-Non Protocol Saldivar Indications Met/Not Met: F/C Indications Not Met Antibiotic Timeout Antibiotic Ordered?: Yes Subjective Patient is comfortable at bedside. Discussed in great detail regarding the goals of care and aimed goals of quality of care life as well. Did not break the news of the ureteral mass, deferred to the primary team. Spoke to him about still being evaluated by the radiation control specialist to determine plan for treatment but also did reminding his own goals for quality of life. He is currently living in the veterinary home and is happy. Objective Vital Signs Date Time Temp Pulse Resp B/P (MAP) Pulse Ox O2 Delivery O2 Flow Rate FiO2 02/08/25 06:44 98.4 77 16 147/62 (90) 94 Room Air 02/07/25 08:10 6.0 Result Diagram: 02/08/25 0700 02/08/25 0700 General: Awake and Alert, no acute distress. HEENT: Conjunctiva pink, Sclera clear, Mucus Membranes moist. Resp: Unlabored. Lungs clear to auscultation bilaterally. Heart: Regular Rate and rhythm, normal S1 and S2 without murmur, rub or gallop. Abdomen: Soft, distended, nontender. Bowel sounds present Extremities: 1+ bilateral pitting edema Skin: Warm and Dry. 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 The active hematuria leads to blood clots causing him to have recurrent UTIs and urinary obstructions. He presented with similar complaints at this time with unilateral pyelonephritis without a hydroureter due to complex blood products within the left renal system. He also has a left renal cell carcinoma that is currently being evaluated for nephrectomy. He has been evaluated by Urology in the hospital for a stent placement. Yesterday, a left ureteral stent was placed and he was found to have a left ureteral mass during the procedure. Plan Plan 1. Acute kidney injury: Improving Secondary to postobstructive renal injury Newly diagnosed ureteral mass Ongoing hematuria, transfuse if hemoglobin less than seven Obstruction likely secondary to obstructing mass Continue IV fluids, continue monitoring output 2. Left renal pyelonephritis and hydronephrosis: Stasis induced UTI Secondary to radiation cystitis induced hematuria- clotted blood products within the renal system Generalized weakness from UTI. Switched to IV Levaquin Stent placement by Urology today on 02/07/2025 Continue medications of tamsulosin and finasteride. Blood pressure is well- controlled, can increase tamsulosin to b.i.d. dosing 3. Renal cell carcinoma: Pancreatic lesion of 2.1 cm Kindly being evaluated for nephrectomy and neoadjuvant chemotherapy/radiotherapy Outpatient follow up for oncology at [facility] Lines: PIV Code status: Full code Disposition: Thank you for this interested consult. Nephrology will sign off. Chandler Gustafson PGY3, Internal medicine resident Date of Service: Feb 08, 2025 Billing Provider: VICENTE GO III, DEEPANJALI, RES Feb 08, 2025 08:41
[2025-02-08 10:00] VITALS: BP 124/64; PULSE 80; RESP 18; TEMP 97.9; O2SAT 100
[2025-02-08 10:21] LABS: BANDS% (MANUAL) 1.0 % (0-10); BASOPHILS % (MANUAL) 1.0 % (0-1); LYMPHOCYTES % (MANUAL) 6.0 % (21-51); MONOCYTES % (MANUAL) 15.0 % (2-12); NEUTROPHILS % (MANUAL) 77.0 % (42-75)
[2025-02-08 10:22] LABS: PLATELET ESTIMATE NORMAL
--- NOTE | 2025-02-08 11:34 | PROGRESS NOTE ---
Daily Progress Note Providers to CC ~ Antibiotic Timeout Antibiotic Ordered?: Yes Subjective No acute events overnight. Patient examined at bedside. No new complaints, not in acute distress. Patient denies chest pain, sob, palpitations, abdominal pain, n/v/d. OR for stent placement today by Dr. Alves. Vss, afebrile, labs unremarkable. One out of two taken at the same time came back positive for Pseudomonas fluorescens. Consulted ID Dr. Loza who will follow. Objective Vital Signs Date Time Temp Pulse Resp B/P (MAP) Pulse Ox O2 Delivery O2 Flow Rate FiO2 02/08/25 10:00 97.9 80 18 124/64 (84) 100 Room Air 02/07/25 08:10 6.0 Result Diagram: 02/08/25 0702/08/25 07 Physical Exam General: A&Ox 3, NAD HEENT: Normocephalic, PERRLA Neck: Supple, trachea midline, no JVD Chest: Clear to auscultation bilaterally Cardiovascular: RRR, S1&S2 GI: Soft and nontender Extremities: No cyanosis/clubbing/or edema CITRIX ENGINEER: CN II-XII intact, no focal deficits Musculoskeletal: No paraspinal muscle tenderness, no muscle spasm Skin: Warm and intact Problem\Assessment\Plan 84-year-old male who is hard of hearing with history of prostate cancer status post radiation, newly diagnosed renal cancer, cystitis and prostatitis presented to the ED due to balance issues and chills Assessment & Plan Sepsis 2/2 left pyelonephritis, UTI Postrenal GRETTA 2/2 hydronephrosis/tubular stasis- POA Recent dx of renal cell carcinoma, left- biopsy done by Dr. Alves prior to admission History of prostate cancer s/p radiation -02/05: CT reveals severe left hydronephrosis perinephric edema with blood products within the renal collecting system without evidence of radiopaque stones. Findings concerning for underlying renal malignancy such as transitional cell carcinoma. -case discussed with urologist Dr. Alves. Case consulted with obedience trainer Dr. Zaman. -patient has f/u appt with college is [facility] on 02/08/25 -02/06: OR for stent placement tomorrow by Dr. Alves -02/07: stent placed today -02/08: One out of two taken at the same time came back positive for Pseudomonas fluorescens. Consulted ID Dr. Loza who will follow. Orthostatic hypotension Syncope 2/2 Autonomic dysfunction- POA CVA- ruled out -Per ED records, mentioned about the syncopal episode, patient is alert and oriented x4, denied syncope. He also states he did not have a fall or hit his head. CT head negative, orthostatic positive, tele sinus in 70s, carotid US and MRI negative Cystic lesion in the pancreatic head: f/u outpatient MRI with contrast for further evaluation Code Status: Full code DVT prophylaxis: Heparin Date of Service: Feb 08, 2025 Billing Provider: JP HUTCHINSON Common Visit Codes: [id number] INP/OBS CARE(HIGH) JP HUTCHINSON Feb 08, 2025 11:34
[2025-02-08] MEDS: lactose-reduced food (Ensure High Protein) 237ml bottle PO SCH (13:00)
--- NOTE | 2025-02-08 13:48 | CONSULTATION REPORT - RESIDENT ---
Consult Providers to CC Resident Creating Document: J CARLOS ROWLAND CC: SARAN LOZA MD History of Present Illness Reason for Admit\Complaint: Hematuria History of Present Illness Patient is an 84-year-old male with history of prostate cancer 20 years ago and recently diagnosed renal cancer who came to the ED due to persistent hematuria, difficulty walking and chills. Patient reports that he has been experiencing hematuria for the past 15 months, for which he has been following with Dr. Alves. He has undergone 2 cauterizations. He also follows with an oncologist in [place] due to a recently found kidney mass which turned out to be cancerous, and he has been referred to [facility] for further management. During this visit, patient was diagnosed with pyelonephritis 2/2 obstructive uropathy, and yesterday he underwent stenting of the left ureter by Dr. Alves. He has been receiving ceftriaxone 1g daily. Yesterday his blood culture turned out positive for Pseudomonas fluorescens and he was switched to IV Levaquin 750 mg daily. Infectious disease has been consulted for further evaluation and management. Allergies: Coded Allergies: Penicillins (Verified Allergy, Unknown, 02/04/25) Uncoded Allergies: PENICILLIN (Adverse Reaction, Unknown, UNKNOWN, 07/26/23) WHEN TREATING THEIR RA, TOLD THEM TO AVOID IT. Home Medications Home Medications Active [tamsulosin capsule] 0.4 MG Cap 0.4 Mg PO DAILY Reported Folic Acid* (Folic Acid) 0.4 Mg Tablet 1 Tab PO DAILY 30 Days B12 Active (Mecobalamin) 1,000 Mcg Tab.chew 1 Tab PO DAILY 30 Days Iron (Ferrous Sulfate) 325 Mg (65 Mg Iron) Tablet 1 Tab PO DAILY 30 Days Vitamin D (Ergocalciferol) 400 Unit Capsule 1 Cap PO DAILY 30 Days Finasteride 5 Mg Tablet 1 Tab PO DAILY 30 Days Past Medical History Past Medical History Prostate cancer 20 years ago Recently diagnosed renal cancer Past Surgical History Surgical History Comment Cauterization for hematuria x2 Family History Family History: Patient reports no known family medical history. Past Social History Social History Comment Denies drinking alcohol or smoking ROS ROS All systems were reviewed and found negative except for pertinent positives mentioned in HPI Exam Vitals: Vital Signs Date Time Temp Pulse Resp B/P (MAP) Pulse Ox O2 Delivery O2 Flow Rate FiO2 02/08/25 10:00 97.9 80 18 124/64 (84) 100 Room Air 02/07/25 08:10 6.0 General: General: awake, alert oriented to place, time, and person HEENT: No pallor present, no icterus, moist mucous membranes Neck: No masses and tenderness Resp: Unlabored. Lungs clear to auscultation bilaterally. Chest: Normal expansion Cardiovascular: Regular Rate and rhythm, normal S1 and S2 without murmur, rub or gallop Abdomen: Soft and nontender, no organomegaly, no guarding and rigidity, bowel sounds present Neuro: No focal weakness in the upper and lower limb muscles, power of the muscles 5/5 bilateral upper and lower extremities, normal reflexes bilaterally. Cranial nerves intact Extremities: No cyanosis,clubbing or edema Skin: Warm and Dry. No lesions Psych: Normal affect Diagnostic Data Last Recorded Lab Results: 02/08/25 0700 02/08/25 0700 Additional Plan Infectious disease consultation note: Left pyelonephritis Septicemia, Pseudomonas fluorescens, urinary source Obstructive uropathy with hydronephrosis s/p left ureteral stenting Postrenal GRETTA Recent dx of renal cell carcinoma Remote history of prostate cancer s/p radiation White count has normalized Kidney function is improving Blood culture grew Pseudomonas fluorescens Switch levofloxacin to p.o. Will decrease dose to 500 mg daily to adjust to renal function. Continue for 2 weeks Follow up outpatient with Dr. Alves Continue follow up with oncology. Apparently patient is being set up through the [place] Above plans discussed in detail with Dr. Loza Disposition: Continue care in ortho floor. Continue antibiotics as above J Carlos Muniz MD Internal Medicine Resident PGY-2 Date of Service: Feb 08, 2025 Billing Provider: SARAN LOZA MD, LEONARDO LUIS Feb 08, 2025 13:48 SARAN LOZA MD Feb 08, 2025 17:58
[2025-02-08 18:00] VITALS: BP 131/70; PULSE 71; RESP 16; TEMP 97.4; O2SAT 96
[2025-02-08 20:00] VITALS: BP_SYST 139; BP_SYST 141; BP_SYST 148; BP_DIAS 59; BP_DIAS 65; BP_DIAS 71; PULSE 71; PULSE 80; PULSE 82; RESP 16; O2SAT 97
[2025-02-08 22:00] VITALS: BP 141/68; PULSE 69; RESP 18; TEMP 97.5; O2SAT 98
[2025-02-09 05:39] LABS: MEAN PLATELET VOLUME 8.6 FL (7.4-10.4); RED CELL DISTRIBUTION WIDTH 14.5 % (11.5-14.5)
[2025-02-09 05:51] LABS: CREATININE 1.36 MG/DL (0.60-1.10); PHOSPHORUS 2.5 MG/DL (2.3-4.5); TOTAL CARBON DIOXIDE 22.8 MMOL/L (24-32); eCRCL 40 ML/MIN; eGFR 50 ML/MIN
[2025-02-09 06:00] VITALS: BP 137/62; PULSE 63; RESP 16; TEMP 98.3; O2SAT 95
[2025-02-09 06:35] LABS: EOSINOPHILS % (MANUAL) 1.0 % (0-6); LYMPHOCYTES % (MANUAL) 8.0 % (21-51); METAMYLEOCYTES% (MANUAL) 1.0 % (0-0); MONOCYTES % (MANUAL) 11.0 % (2-12); NEUTROPHILS % (MANUAL) 79.0 % (42-75)
[2025-02-09 06:36] LABS: PLATELET ESTIMATE DECREASED
[2025-02-09 10:00] VITALS: BP_SYST 133; BP_SYST 138; BP_DIAS 63; BP_DIAS 76; PULSE 77; PULSE 87; PULSE 97; RESP 16; TEMP 97; O2SAT 99
[2025-02-09] MEDS ORDERED: LEVO-65 PO (10:12)
[2025-02-09] MEDS ORDERED: ASPI81TA52 PO (10:12)
[2025-02-09] MEDS ORDERED: PANT40TA54 PO (10:12)
--- NOTE | 2025-02-09 10:20 | DISCHARGE SUMMARY ---
Discharge Summary Providers to CC ~ Discharge Summary Admission Diagnosis: Pyelonephritis, bacteremia postrenal GRETTA, renal carcinoma Hospital Course DATE OF ADMISSION: 02/04/25 DATE OF DISCHARGE: 02/09/25 Discharge Diagnosis\\Comment: Sepsis 2/2 left pyelonephritis, UTI Postrenal GRETTA 2/2 hydronephrosis/tubular stasis- POA Bacteremia- POA Recent dx of renal carcinoma, left History of prostate cancer s/p radiation Orthostatic hypotension Syncope 2/2 Autonomic dysfunction- POA CVA- ruled out Operations\\Procedures: Left ureteral stent placement Consultants: Urologist Dr. Alves, Cisco Loza, Ayaan Reimbursement Director Jd Abdi Complications: None Condition on DC: Stable New Medications: Aspirin (Aspirin EC) 81 Mg Tablet.dr 1 TAB PO DAILY for 30 Days, #30 TAB Levofloxacin (Levofloxacin) 500 Mg Tablet 500 MG PO DAILY for 14 Days, #14 TAB Pantoprazole Sodium (Pantoprazole Sodium) 40 Mg Tablet.dr 40 MG PO DAILY for 30 Days, #30 TAB.SR Continued Medications: Ergocalciferol (Vitamin D) 400 Unit Capsule 1 CAP PO DAILY for 30 Days, #30 CAP 0 Refills Ferrous Sulfate (Iron) 325 Mg (65 Mg Iron) Tablet 1 TAB PO DAILY for 30 Days, #30 TAB 0 Refills Finasteride (Finasteride) 5 Mg Tablet 1 TAB PO DAILY for 30 Days, #30 TAB 0 Refills Folic Acid* (Folic Acid*) 0.4 Mg Tablet 1 TAB PO DAILY for 30 Days, #30 TAB Mecobalamin (B12 Active) 1,000 Mcg Tab.chew 1 TAB PO DAILY for 30 Days, #30 TAB 0 Refills [tamsulosin capsule] () 0.4 MG CAP 0.4 MG PO DAILY, #30 Discharge Summary: History of Present Illness From H&P: "84-year-old male who is hard of hearing with history of prostate cancer status post radiation, newly diagnosed renal carcinoma, cystitis and prostatitis presented to the ED due to balance issues and chills. Lives in a usp home and states he has been having balance issues for the past five days. Prior to this he was able to walk without any issues. Denies losing consciousness or having a fall or hitting his head. He states he has been having hematuria for the past two years and has been followed by Dr. Alves his urologist. Twenty years ago he was diagnosed with prostate cancer status post radiation. Started developing hematuria two years ago, he had cauterization done by Dr. Alves in August 2023 and August 2024. Denies significant chest pains, diaphoresis, fevers, nasal congestion, expectoration, palpitations, or weight loss/weight gain. Denies symptoms of UTI like burning, urgency or frequency. States he has been diagnosed with a kidney mass that was biopsied and was found to be cancerous. On Tuesday he has an appointment with his oncologist in [place], he has been referred to [facility] oncology. Denies drinking alcohol or smoking. Discussed advanced care directives and he wishes to be a full code." Hospital Course Diagnostic findings were notable for findings of sepsis, elevated procal, urinalysis indicating urinary tract infection, abnormal renal function, CT revealing left hydronephrosis, pyelonephritis, as well as findings concerning for renal carcinoma which is consistent with his recent diagnosis. Case was discussed with urologist Dr. Alves and patient underwent left ureteral stent placement. Case was further discussed with hematology supervisor Dr. Zaman. Patient was treated with intravenous fluids, empirical antibiotics. Blood culture resulted positive for Pseudomonas fluorescens. Case was consulted with ID Dr. Loza who recommended 2 week course of oral Levaquin. Patient did not experience further complications throughout the entire hospital stay and made a good recovery. Patient was seen and examined on the day of discharge. On day of discharge, vss, labs notable for improving acute kidney injury. All labs, diagnostic workups, discharge plan discussed with patient in details during visit before discharge. All questions and concerns answered to the best of my professional knowledge. Patient is to be discharged to home to self and to follow-up with urologist Dr. Alves, ID Dr. Loza, and his oncologist at [facility] within 2 weeks. Physical Exam General: Generalized weakness, A&Ox 3, NAD HEENT: Normocephalic, PERRLA Neck: Supple, trachea midline, no JVD Chest: Clear to auscultation bilaterally Cardiovascular: RRR, S1&S2 GI: Soft and nontender Extremities: No cyanosis/clubbing/or edema SAMPLE DRILLER: CN II-XII intact, no focal deficits Musculoskeletal: No paraspinal muscle tenderness, no muscle spasm Skin: Warm and intact *Problems/Diagnosis: (1) Urothelial cancer Status: Chronic Total Time Spent on D/C: > 30 Minutes Date of Service: Feb 09, 2025 Billing Provider: JP HUTCHINSON Common Visit Codes: 93707-LUM/OBS DISCH DAY >30min JP HUTCHINSON Feb 09, 2025 10:19
== END 2025-02-09 12:00 | disposition home or self-care (01) | DRG 853 ==
LOC: ER 14:57 → ED HOLD 21:02 → EDBEDREQ 21:11 → ORTHO 4S 02-05 00:10
PROVIDERS: ADMIT Internal Medicine Critical Care Medicine; ATTEND Nurse Practitioner Family
PROC: BT1F1ZZ Fluoroscopy of Left Kidney, Ureter and Bladder using Low Osmolar Contrast (ICD-10-PCS; 2025-02-07)
PROC: 0T778DZ Dilation of Left Ureter with Intraluminal Device, Via Natural or Artificial Opening Endoscopic (ICD-10-PCS; principal; 2025-02-07 07:23)
DX: A41.9 Sepsis, unspecified organism (principal); N17.0 Acute kidney failure with tubular necrosis; N13.6 Pyonephrosis; C64.9 Malignant neoplasm of unspecified kidney, except renal pelvis; I95.9 Hypotension, unspecified; G90.89 Other disorders of autonomic nervous system; N40.0 Benign prostatic hyperplasia without lower urinary tract symptoms; Z92.3 Personal history of irradiation; Z88.0 Allergy status to penicillin; Z85.46 Personal history of malignant neoplasm of prostate
CPT/HCPCS: 36415; 70450; 70551; 71045; 74176; 74420; 76000; 80048; 80061; 81001; 83605; 83735; 84100; 84145; 85007; 85025; 87040; 87077; 87081; 87088; 87186; 93880; 96365; 97110; 97116; 97162; 99285; A4618; C1758; C1769; C2617; G0378; J0696; J1644; J1956; J2704; J3010; J7030; Q9967

== ENCOUNTER 2025-06-21 11:10 | Emergency (ER) | payer OTHER, MEDICARE ==
[~2025-06-21] VITALS: Ht 180.3 cm; Wt 81.8 kg
[~2025-06-21 11:10] MED LIST changes: +PANT40TA54 PO
[2025-06-21 11:29] VITALS: TEMP 97.4
[2025-06-21 11:59] LABS: UA COLLECTION TYPE NON-SPECIFIED
[2025-06-21 12:06] LABS: SQUAMOUS EPITHELIAL CELL,UR FEW /LPF (FEW)
[2025-06-21 12:33] LABS: MEAN PLATELET VOLUME 8.2 FL (7.4-10.4); RED CELL DISTRIBUTION WIDTH 13.9 % (11.5-14.5)
[2025-06-21 12:44] LABS: CREATININE 1.81 MG/DL (0.60-1.10); TOTAL CARBON DIOXIDE 27.5 MMOL/L (24-32); eCRCL 31 ML/MIN; eGFR 36 ML/MIN
[2025-06-21 12:47] LABS: APTT 28 SECONDS (22-32); INR 1.1 INR
[2025-06-21] MEDS: sulfamethoxazole/trimethoprim DS (800/160mg) tablet PO ONE (12:49)
[2025-06-21 12:58] LABS: EOSINOPHILS % (MANUAL) 1.0 % (0-6); LYMPHOCYTES % (MANUAL) 4.0 % (21-51); METAMYLEOCYTES% (MANUAL) 1.0 % (0-0); MONOCYTES % (MANUAL) 15.0 % (2-12); NEUTROPHILS % (MANUAL) 79.0 % (42-75); PLATELET ESTIMATE NORMAL
--- NOTE | 2025-06-21 13:11 | Physician Documentation ---
History of Present Illness ~ Chief Complaint: Blood in Urine Stated Complaint: INTERNAL BLEEDING Time Seen by MD: 11:37 OK to notify your PCP?: Yes Primary Medical Doctor: Dr. Friedman @ [facility]. Source: patient Mode of Arrival: POV, Dropped Off, Other Exam Limitations: other (Patient has difficulty staying on topic and is poor historian ) HPI 84-year-old male who is here due to hematuria. He states this has been going on for five days now. He experience this over a year ago prior to having a procedure done by Dr. Alves which he states ablated the area that was bleeding in his prostate or bladder he is not sure. He does have a history of prostate cancer 8-10 years ago. He also was recently diagnosed with renal cell carcinoma and has a follow up with the urologist through the [place] next week. He is not on blood thinners. He denies lightheadedness. He denies difficulty urinating. Just prior to discharge I was informed that patient is being treated for a urinary tract infection on Ciprofloxacin and has two days left. Medication Reconciliation Allergies: Coded Allergies: Penicillins (Verified Allergy, Unknown, 06/21/25) Scheduled Ciprofloxacin HCl (Ciprofloxacin HCl), 1 TAB PO Q12H Ergocalciferol (Vitamin D), 1 CAP PO DAILY, (Reported) Ferrous Sulfate (Iron), 1 TAB PO DAILY, (Reported) Finasteride (Finasteride), 1 TAB PO DAILY, (Reported) Folic Acid* (Folic Acid*), 1 TAB PO DAILY, (Reported) Mecobalamin (B12 Active), 1 TAB PO DAILY, (Reported) Pantoprazole Sodium (Pantoprazole Sodium), 40 MG PO DAILY [tamsulosin capsule], 0.4 MG PO DAILY Past Medical History Past Medical History: *RENAL/*, BPH, *MUSCULOSKELETAL*, *CANCER* (renal cell carcinoma, prostate cancer) Past Surgical History: other (prostate ) Patient History: Patient reports no known family medical history. Past Social History: As in HPI Review of Systems All Other Systems at this time: Reviewed and Negative Physical Exam Vital Signs: Temperature: 97.4, Source: Oral, Heart Rate: 74, Respiratory Rate: 16, BP: 114/71, Pulse Oximetry: 98, Weight: 81.820 Oxygen Flow Rate: 0 Physical Exam GENERAL: Alert, no acute distress. Patient has a stutter when he responds he is very slow to respond when asking questions and it is hard for him to stay on topic. HEENT: NCAT, EOMI, PERRL, normal oropharynx, moist oral mucosa. NECK: Supple, trachea midline. CARDIAC: Regular rate and rhythm, no murmurs, rubs, or gallops. Equal distal pulses. No lower extremity edema, cap refill less than 2 seconds. RESPIRATORY: Equal breath sounds, clear to auscultation bilaterally, no respiratory distress. GASTROINTESTINAL: Non distended, soft, nontender, No guarding or rebound. MUSCULOSKELETAL: Normal range of motion, nontender, no swelling. NEUROLOGICAL: Awake, alert, and oriented x 3. SKIN: Warm/dry, no pallor, no rash. PSYCH: Alert and appropriate. Affect congruent with mood. Speech is clear. Good eye contact. Progress Results/Orders Results/Orders Completed Orders - ANGÉLICA EAGLE Cbc/Diff (06/21/25 12:01) Pt Inr (06/21/25 12:01) PTT (06/21/25 12:01) BMP (06/21/25 12:01) Sulfamethox/Trimetho. Ds Tab (Aprra Ds (06/21/25 12:40) Man Diff (06/21/25 12:20) Vital Signs 06/21/25 06/21/25 06/21/25 06/21/25 11:29 11:55 12:03 13:16 Temp 97.4 Pulse 66 74 72 Resp 18 16 16 16 B/P (MAP) 126/47 114/71 (85) 124/48 (73) Pulse Ox 97 98 98 O2 Flow Rate 0 0 0 06/21/25 13:53 Pulse 70 Resp 16 B/P (MAP) Pulse Ox 98 Laboratory Tests Test 06/21/25 11:47 06/21/25 12:20 Urine Specimen Description Non-specified Urine Color Red Urine Clarity Cloudy Urine pH Urine Specific [place] Urine Protein Urine Glucose (UA) Urine Ketones Urine Occult Blood Urine Nitrite Urine Bilirubin Urine Urobilinogen Urine Leukocyte Esterase Urine RBC Tntc Urine WBC 10-20 H Urine Squamous Epithelial Cells Few Urine Bacteria Few Urine Culture Indicated Indicated Volume Urine Centrifuged 10 ml Urine Comment See note White Blood Count 7.5 Red Blood Count 3.32 L Hemoglobin 10.7 L Hematocrit 31.9 L Mean Corpuscular Volume 96.0 Mean Corpuscular Hemoglobin 32.2 H Mean Corpuscular Hemoglobin Concent 33.6 Red Cell Distribution Width 13.9 Platelet Count 187 Mean Platelet Volume 8.2 Neutrophils (%) (Auto) 75.3 H Lymphocytes (%) (Auto) 7.7 L Monocytes (%) (Auto) 16.3 H Eosinophils (%) (Auto) 0.3 Basophils (%) (Auto) 0.4 Neutrophils # (Auto) 5.6 Lymphocytes # (Auto) 0.6 L Monocytes # (Auto) 1.2 H Eosinophils # (Auto) 0.0 Basophils # (Auto) 0.0 CBC Comment Differential Total Cells Counted 100 Neutrophils % (Manual) 79.0 H Lymphocytes % (Manual) 4.0 L Monocytes % (Manual) 15.0 H Eosinophils % (Manual) 1.0 Metamyelocytes % 1.0 H Platelet Estimate Normal Red Blood Cell Morphology Perf Basophilic Stippling Macrocytosis 1+ Prothrombin Time 11.1 INR International Normalized Ratio 1.1 Activated Partial Thromboplast Time 28 Coagulation Comments Sodium Level 136 Potassium Level 4.9 Chloride Level 102 Carbon Dioxide Level 27.5 Anion Gap 7 L Blood Urea Nitrogen 34 H Creatinine 1.81 H Estimated GFR/1.73 m2 36 BUN/Creatinine Ratio 18.8 Glucose Level 116 H Calcium Level 8.5 Albumin 2.4 L Chemistry Comments Microbiology Date/Time Source Procedure Growth Status 06/21/25 12:06 Urine Nonspecified Urine Culture - Preliminary Culture received. Resulted Medical Decision Making Additional information obtaine: old records Findings previous ER visits Urinary Diff Dx:Considerations: Include: AAA, Aortic dissection, Appendicitis, Appendicitis train, Bowel obstruction, Bladder outlet obstruc., Cholelithiasis, Choleangitis, Cholecystitis, DJD, Epididymitis, Hepatitis, HNP, Impaction, Musculoskeletal pain, Pancreatitis, Postoperative Comp., Prostatitis, Pyelonephritis, Renal failure, Renal infarction, Strain, Urolithiasis, Urinary Obstruction, Urethritis, Urinary retention, UTI, Other Genital Diff Dx:Considerations: Unlikely: Other Additional Comment Patient's hemoglobin appears to be at his baseline, he appears to be emptying his bladder fully as he has minimal postvoid residual on bladder scan. There was no evidence for an obstructive issue or any need for transfusion at this time. He does have a urinary tract infection which I prescribed him Cipro for. 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 Chronic anemia Condition: Stable Discharge Instructions: Hematuria, Adult, Urinary Tract Infection, Adult Additional Instructions: Urinalysis shows that there is still bacteria I recommend continuing the cipro 500mg 1PO BID x 7days and obtain the culture results which will be available in a few days Post void residual did not show any substantial post void residual was less than 30cc hemoglobin appeared at his baseline 10.7 Renal function at his baseline Creatinine clearance calculated at 34 Recommend repeat CBC in 2-3days if bleeding persists and if unable to to this, then return to ER It would probably be best to go to [facility] in case there is any need for interventional radiology Referrals: NO PRIMARY CARE PROVIDER (PCP) Prescriptions Ciprofloxacin HCl (Ciprofloxacin HCl) 500 Mg Tab 1 TAB PO Q12H for 7 Days, #14 TAB Prov: ANGÉLICA EAGLE 06/21/25 Education Educated: Patient Educated regarding: diagnosis, treatment, need for follow up Signature Scribe Signature: shi Attestation: ANGÉLICA Pires Jun 21, 2025 13:11
[2025-06-21 13:16] VITALS: BP 124/48
[2025-06-21] MEDS ORDERED: CIPR-458 PO (13:47)
[2025-06-21 13:53] VITALS: PULSE 70; RESP 16; O2SAT 98
== END 2025-06-21 14:14 | disposition home or self-care (01) ==
LOC: ER 11:11
DX: C64.9 Malignant neoplasm of unspecified kidney, except renal pelvis (principal); N39.0 Urinary tract infection, site not specified; R31.9 Hematuria, unspecified; D64.9 Anemia, unspecified; Z88.0 Allergy status to penicillin; Z87.440 Personal history of urinary (tract) infections; Z85.46 Personal history of malignant neoplasm of prostate; Z79.899 Other long term (current) drug therapy
CPT/HCPCS: 36415; 51798; 80048; 81001; 85007; 85025; 85610; 85730; 87088; 99284